=== PATIENT | male | born 1970 | race Caucasian/White ===

== ENCOUNTER → 2020-12-10 | Outpatient (CLI) | payer OTHER | LOC: M LABSMTC 13:51 | PROVIDERS: ATTEND Family Medicine | DX: Z20.822 Contact with and (suspected) exposure to COVID-19 (principal) ==

== ENCOUNTER → 2020-12-16 | Outpatient (CLI) | payer OTHER ==
[2020-12-16 13:36] LABS: HEMATOCRIT 37.8 % (42.0-52.0); HEMOGLOBIN 11.9 g/dl (13.5-17.5); MEAN CORPUSCULAR HEMOGLOBIN 26.4 pg (27.0-33.0); MEAN CORPUSCULAR HGB CONC 31.5 g/dl (32.0-36.5); MEAN CORPUSCULAR VOLUME 83.8 fl (80.0-96.0); PLATELET COUNT, AUTOMATED 234 10^3/uL (150-450); RED BLOOD COUNT 4.51 10^6/uL (4.30-6.10); WHITE BLOOD COUNT 4.8 10^3/uL (4.0-10.0)
[2020-12-16 15:36] LABS: ALBUMIN 4.1 GM/DL (3.2-5.2); ALT/SGPT 24 U/L (12-78); BILIRUBIN,TOTAL 0.4 MG/DL (0.2-1.0); BLOOD UREA NITROGEN 13 MG/DL (7-18); CALCIUM LEVEL 9.3 MG/DL (8.5-10.1); CARBON DIOXIDE LEVEL 28 MEQ/L (21-32); CHLORIDE LEVEL 104 MEQ/L (98-107); CREATININE FOR GFR 1.02 MG/DL (0.70-1.30); GLOMERULAR FILTRATION RATE > 60.0 (>56); GLUCOSE, FASTING 110 MG/DL (70-100); HEPATITIS B SURFACE ANTIGEN NEGATIVE (NEGATIVE); HEPATITIS C VIRUS ABY INDEX 0.7 INDEX (<0.8); HIV 1&2 SCREEN CENTAUR NEGATIVE (NEGATIVE); POTASSIUM SERUM 4.2 MEQ/L (3.5-5.1); SODIUM LEVEL 138 MEQ/L (136-145); TOTAL PROTEIN 7.4 GM/DL (6.4-8.2)
--- NOTE | 2020-12-16 16:19 | ECGEPIP ---
[facility] Test Date: 2020-12-16 Pat Name: GURVINDER SCOTT Department: Room: - Gender: Male Records Officer: RF : 1970 Requested By: Gurvinder Gutierrez Order Number: [id number] Reading MD: Oscar Bruce Measurements Intervals [place] Rate: 66 P: 55 [place]: 130 QRS: 13 QRSD: 94 T: 21 QT: 400 QTc: 419 Interpretive Statements Normal sinus rhythm Prominent precordial voltages No prior tracing for comparison. Clincal correlation advised Electronically Signed on 12-16-2020 16:19:47 EST by Oscar Bruce
== END ==
LOC: M LAB 12:18
PROVIDERS: ATTEND Family Medicine
DX: F11.20 Opioid dependence, uncomplicated (principal)

== ENCOUNTER → 2020-12-16 | Outpatient (CLI) | payer OTHER ==
[2020-12-16 13:28] LABS: APPEARANCE, URINE CLEAR (CLEAR); BACTERIA, URINE AUTO NEGATIVE (NEGATIVE); BILIRUBIN, URINE AUTO NEGATIVE (NEGATIVE); BLOOD, URINE BLOOD NEGATIVE (NEGATIVE); COLOR, URINE STRAW (YELLOW); GLUCOSE, URINE (UA) AUTO NEGATIVE (NEGATIVE); KETONE, URINE AUTO NEGATIVE (NEGATIVE); LEUKOCYTE ESTERASE, URINE AUTO NEGATIVE (NEGATIVE); NITRITE, URINE AUTO NEGATIVE (NEGATIVE); PROTEIN, URINE AUTO NEGATIVE (NEGATIVE); RBC, URINE AUTO 1 /HPF (0-3); SPECIFIC GRAVITY URINE AUTO 1.006 (1.002-1.035); SQUAMOUS EPITHELIAL CELL UR AU 0 /HPF (0-6); UROBILINOGEN, URINE AUTO 0.2 mg/dL (0.0-2.0); WBC, URINE AUTO 0 /HPF (0-3)
[2020-12-16 13:38] LABS: HEMATOCRIT 36.4 % (42.0-52.0); HEMOGLOBIN 11.7 g/dl (13.5-17.5); MEAN CORPUSCULAR HEMOGLOBIN 26.7 pg (27.0-33.0); MEAN CORPUSCULAR HGB CONC 32.1 g/dl (32.0-36.5); MEAN CORPUSCULAR VOLUME 82.9 fl (80.0-96.0); PLATELET COUNT, AUTOMATED 238 10^3/uL (150-450); RED BLOOD COUNT 4.39 10^6/uL (4.30-6.10); WHITE BLOOD COUNT 4.9 10^3/uL (4.0-10.0)
[2020-12-16 14:10] LABS: ALT/SGPT 25 U/L (12-78); BILIRUBIN,TOTAL 0.2 MG/DL (0.2-1.0); BLOOD UREA NITROGEN 12 MG/DL (7-18); CALCIUM LEVEL 9.5 MG/DL (8.5-10.1); CARBON DIOXIDE LEVEL 28 MEQ/L (21-32); CHLORIDE LEVEL 103 MEQ/L (98-107); CREATININE FOR GFR 1.01 MG/DL (0.70-1.30); GLOMERULAR FILTRATION RATE > 60.0 (>56); GLUCOSE, FASTING 109 MG/DL (70-100); POTASSIUM SERUM 4.1 MEQ/L (3.5-5.1); SODIUM LEVEL 138 MEQ/L (136-145); TOTAL PROTEIN 7.4 GM/DL (6.4-8.2)
[2020-12-16 14:58] LABS: CHLAMYDIA DNA AMPLIFICATION NEGATIVE (NEGATIVE); GC DNA AMPLIFICATION NEGATIVE (NEGATIVE)
[2020-12-16 15:19] LABS: HEPATITIS C VIRUS ABY INDEX 0.7 INDEX (<0.8)
== END ==
LOC: M LAB 12:15
PROVIDERS: ATTEND Internal Medicine Cardiovascular Disease
DX: Z02.2 Encounter for examination for admission to residential institution (principal)

== ENCOUNTER → 2020-12-30 | Outpatient (CLI) | payer MEDICAID, OTHER | LOC: M LAB 11:08 | PROVIDERS: ATTEND Physician Assistant Medical | DX: E29.1 Testicular hypofunction (principal) ==

== ENCOUNTER → 2021-12-07 | Outpatient (CLI) | payer MEDICAID ==
[2021-12-07 12:09] LABS: HEMATOCRIT 36.8 % (42.0-52.0); HEMOGLOBIN 11.8 g/dl (13.5-17.5); MEAN CORPUSCULAR HEMOGLOBIN 27.7 pg (27.0-33.0); MEAN CORPUSCULAR HGB CONC 32.1 g/dl (32.0-36.5); MEAN CORPUSCULAR VOLUME 86.4 fl (80.0-96.0); PLATELET COUNT, AUTOMATED 193 10^3/uL (150-450); RED BLOOD COUNT 4.26 10^6/uL (4.30-6.10); WHITE BLOOD COUNT 4.9 10^3/uL (4.0-10.0)
[2021-12-07 12:39] LABS: ALT/SGPT 26 U/L (12-78); BILIRUBIN,TOTAL 0.3 MG/DL (0.2-1.0); BLOOD UREA NITROGEN 15 MG/DL (7-18); CALCIUM LEVEL 9.3 MG/DL (8.5-10.1); CARBON DIOXIDE LEVEL 31 MEQ/L (21-32); CHLORIDE LEVEL 103 MEQ/L (98-107); CREATININE FOR GFR 0.98 MG/DL (0.70-1.30); GLOMERULAR FILTRATION RATE > 60.0 (>56); GLUCOSE, FASTING 94 MG/DL (70-100); POTASSIUM SERUM 4.2 MEQ/L (3.5-5.1); SODIUM LEVEL 138 MEQ/L (136-145); TOTAL PROTEIN 7.2 GM/DL (6.4-8.2)
[2021-12-07 13:00] LABS: HEPATITIS B SURFACE ANTIGEN NEGATIVE (NEGATIVE)
[2021-12-07 13:28] LABS: HEPATITIS C VIRUS ABY INDEX 0.6 INDEX (<0.8)
[2021-12-07 13:29] LABS: HIV 1&2 SCREEN CENTAUR NEGATIVE (NEGATIVE)
[2021-12-07 14:06] LABS: GC DNA AMPLIFICATION NEGATIVE (NEGATIVE)
== END ==
LOC: M EKG 11:25
PROVIDERS: ATTEND Family Medicine
DX: F11.21 Opioid dependence, in remission (principal)

== ENCOUNTER 2022-01-04 07:54 | Emergency (ER) | payer MEDICAID ==
[~2022-01-04] VITALS: Ht 170.2 cm; Wt 72.7 kg
[2022-01-04] MEDS ORDERED: NS 1,000 ML IV ONE ×2 (08:10→09:25)
[2022-01-04] MEDS ORDERED: ONDANSETRON 4MG/2ML VIAL IV ONE (08:10)
[2022-01-04 08:15] VITALS: BP 166/92
[2022-01-04] MEDS ORDERED: METHADONE 10 MG TAB (S0109) PO ONE (08:20)
[2022-01-04] MEDS ORDERED: ACETAMINOPHEN TAB 650MG DOSE (2X325MG) PO ONE (08:50)
[2022-01-04 08:55] LABS: BASO % 0.3 % (0.0-1.0); EOS # 0.1 10^3/uL (0.0-0.5); EOS % 1.1 % (0.0-3.0); HEMOGLOBIN 11.6 g/dl (13.5-17.5); LYMPH # 1.6 10^3/uL (1.5-5.0); LYMPH % 20.6 % (24.0-44.0); MEAN CORPUSCULAR HEMOGLOBIN 27.8 pg (27.0-33.0); MEAN CORPUSCULAR HGB CONC 32.2 g/dl (32.0-36.5); MEAN CORPUSCULAR VOLUME 86.1 fl (80.0-96.0); MONO # 0.5 10^3/uL (0.0-0.8); MONO % 5.8 % (2.0-8.0); NEUTROPHILS # 5.7 10^3/uL (1.5-8.5); NEUTROPHILS % 71.8 % (36.0-66.0); PLATELET COUNT, AUTOMATED 237 10^3/uL (150-450); RED BLOOD COUNT 4.18 10^6/uL (4.30-6.10); WHITE BLOOD COUNT 7.9 10^3/uL (4.0-10.0)
[2022-01-04 09:28] LABS: ACETAMINOPHEN LEVEL < 2.0 UG/ML (10.0-30.0); ALBUMIN 3.9 GM/DL (3.2-5.2); ALT/SGPT 27 U/L (12-78); BILIRUBIN,DIRECT < 0.1 MG/DL (0.0-0.2); BILIRUBIN,TOTAL 0.4 MG/DL (0.2-1.0); BLOOD UREA NITROGEN 15 MG/DL (7-18); CALCIUM LEVEL 9.3 MG/DL (8.5-10.1); CARBON DIOXIDE LEVEL 25 MEQ/L (21-32); CHLORIDE LEVEL 102 MEQ/L (98-107); CREATININE FOR GFR 0.86 MG/DL (0.70-1.30); ETHYL ALCOHOL (ETHANOL) < 0.003 % (0.000-0.010); GLOMERULAR FILTRATION RATE > 60.0 (>56); GLUCOSE, FASTING 105 MG/DL (70-100); LIPASE 38 U/L (73-393); POTASSIUM SERUM 4.9 MEQ/L (3.5-5.1); SALICYLATE LEVEL < 1.7 MG/DL (5.0-30.0); SODIUM LEVEL 136 MEQ/L (136-145); TOTAL PROTEIN 7.4 GM/DL (6.4-8.2)
[2022-01-04 09:48] LABS: AMPHETAMINES LEVEL URINE NEGATIVE (NEGATIVE); BARBITURATES URINE NEGATIVE (NEGATIVE); BENZODIAZEPINES URINE NEGATIVE (NEGATIVE); CANNABINOIDS URINE POSITIVE (NEGATIVE); COCAINE METABOLITE URINE NEGATIVE (NEGATIVE); METHADONE URINE POSITIVE (NEGATIVE); OPIATES URINE NEGATIVE (NEGATIVE); PHENCYCLIDINE URINE NEGATIVE (NEGATIVE)
[2022-01-04] MEDS ORDERED: ISOVUE-370 76% 100ML VIAL As Ordered ONE (09:52)
[2022-01-04 10:13] LABS: RSV AMPLIFICATION NEGATIVE (NEGATIVE)
[2022-01-05] MEDS ORDERED: SENN-80 PO (08:19)
[2022-01-05] MEDS ORDERED: OMEP40CA4 PO (08:19)
[2022-01-05] MEDS ORDERED: FLOV100A INH (08:19)
[2022-01-05] MEDS ORDERED: DOXE50CA PO (08:19)
[2022-01-05] MEDS ORDERED: medical marijuana (08:19)
[2022-01-05] MEDS ORDERED: FLOM0.4C39 PO (08:19)
[2022-01-05] MEDS ORDERED: LEXA5TAB13 PO (08:19)
[2022-01-05] MEDS ORDERED: METH10CO PO (08:19)
[2022-01-05] MEDS ORDERED: IBUP80TA PO (08:19)
[2022-01-05] MEDS ORDERED: PROAAER10 INH (08:31)
== END 2022-01-04 12:57 | disposition home or self-care (01) ==
LOC: M ED 07:54 → EDBD 07:54 → M ED 12:57
DX: F19.230 Other psychoactive substance dependence with withdrawal, uncomplicated (principal); R10.9 Unspecified abdominal pain; R11.10 Vomiting, unspecified; F11.10 Opioid abuse, uncomplicated; Z88.0 Allergy status to penicillin; Z88.6 Allergy status to analgesic agent
CPT/HCPCS: 74177; 80048; 80076; 80143; 80307; 82077; 82550; 83605; 83690; 84443; 85025; 87040; 87631; 93041; 94760; 96361; 96374; 99284; J2405; Q9967

== ENCOUNTER 2022-01-19 07:11 | Day surgery (SDC) | payer MEDICAID ==
[~2022-01-19] VITALS: Ht 167.6 cm; Wt 72.6 kg
[~2022-01-19 07:11] MED LIST: DOXE50CA PO; FLOM0.4C39 PO; FLOV100A INH; IBUP80TA PO; LEXA5TAB13 PO; LIDOCAINE 1% MDV 20ML VIAL SQ PRN; LR 1,000 ML IV ONE; METH10CO PO; OMEP40CA4 PO; PROAAER10 INH; SENN-80 PO; medical marijuana
[2022-01-19] MEDS ORDERED: LevoFLOXacin IV 500 MG in IV 1 EA IV ONE (07:35)
[2022-01-19] MEDS ORDERED: LIDOCAINE 2% 100MG/5ML SDV (FOR ANES.) As Ordered ONE (07:54)
[2022-01-19] MEDS ORDERED: ONDANSETRON 4MG/2ML VIAL As Ordered ONE (07:54)
[2022-01-19] MEDS ORDERED: dexameTHASONE 4 MG/ML 1ML VIAL (J1100 PER 1MG) As Ordered ONE (07:54)
[2022-01-19] MEDS ORDERED: fentaNYL 100 MCG/2 ML INJECTION As Ordered ONE (07:54)
[2022-01-19] MEDS ORDERED: MIDAZOLAM INJ 2MG/2ML VIAL (J2250 PER 1MG) As Ordered ONE (07:54)
[2022-01-19] MEDS ORDERED: KETOROLAC 60MG 2ML VIAL As Ordered ONE (07:54)
[2022-01-19] MEDS ORDERED: SUGAMMADEX SODIUM 500 MG/5 ML VIAL (BRIDION) As Ordered ONE (07:55)
[2022-01-19] MEDS ORDERED: ROCURONIUM BROMIDE 50 MG/5 ML VIAL As Ordered ONE ×2 (07:55→10:38)
[2022-01-19] MEDS ORDERED: propofoL 200 MG/20 ML VIAL As Ordered ONE (07:55)
[2022-01-19] MEDS ORDERED: BUPIVACAINE HCL 0.25% 10ML VIAL As Ordered ONE (09:44)
[2022-01-19] MEDS ORDERED: LIDOCAINE W/EPINEPHRINE 1% 20ML VIAL As Ordered ONE (09:44)
[2022-01-19] MEDS ORDERED: ACETAMINOPHEN 1000MG 100ML IV BTL (OFIRMEV) (J0131 PER 10MG) As Ordered ONE (10:14)
[2022-01-19] MEDS ORDERED: ONDANSETRON 4MG/2ML VIAL IV PRN (11:50)
[2022-01-19] MEDS ORDERED: fentaNYL 100 MCG/2 ML INJECTION IV PRN (11:50)
[2022-01-19] MEDS ORDERED: PERCOCET 5MG/325MG TAB PO PRN ×3 (11:50→12:50)
[2022-01-19] MEDS ORDERED: METOCLOPRAMIDE INJ 10MG/2ML VIAL (J2765 PER 1) IV PRN (11:50)
[2022-01-19] MEDS ORDERED: LR 1,000 ML IV SCH (11:50)
[2022-01-19] MEDS ORDERED: NS 1,000 ML IV SCH (11:55)
[2022-01-19 12:05] VITALS: BP 149/89
== END 2022-01-19 12:28 | disposition home or self-care (01) ==
LOC: M SDC 07:11
PROVIDERS: ATTEND Surgery
DX: K40.90 Unilateral inguinal hernia, without obstruction or gangrene, not specified as recurrent (principal); K21.9 Gastro-esophageal reflux disease without esophagitis; J45.909 Unspecified asthma, uncomplicated; Z79.891 Long term (current) use of opiate analgesic; Z79.899 Other long term (current) drug therapy; F41.9 Anxiety disorder, unspecified; F32.9 Major depressive disorder, single episode, unspecified; F12.10 Cannabis abuse, uncomplicated; F11.11 Opioid abuse, in remission; Z88.0 Allergy status to penicillin; Z88.8 Allergy status to other drugs, medicaments and biological substances
CPT/HCPCS: 49650; C1781; J0131; J1100; J1885; J1956; J2250; J2405; J3010; S2900

== ENCOUNTER 2022-04-15 08:25 | Emergency (ER) | payer MEDICAID ==
[~2022-04-15] VITALS: Ht 167.6 cm; Wt 81.8 kg
[~2022-04-15 08:25] MED LIST changes: -LIDOCAINE 1% MDV 20ML VIAL SQ PRN; -LR 1,000 ML IV ONE
[2022-04-15] MEDS ORDERED: NS 1,000 ML IV ONE (08:55)
[2022-04-15] MEDS ORDERED: ONDANSETRON 4MG/2ML VIAL IV ONE (08:55)
[2022-04-15 09:13] LABS: BASO % 0.4 % (0.0-1.0); EOS # 0.1 10^3/uL (0.0-0.5); EOS % 1.1 % (0.0-3.0); HEMOGLOBIN 11.9 g/dl (13.5-17.5); LYMPH # 1.4 10^3/uL (1.5-5.0); LYMPH % 17.4 % (24.0-44.0); MEAN CORPUSCULAR HEMOGLOBIN 28.3 pg (27.0-33.0); MEAN CORPUSCULAR HGB CONC 33.1 g/dl (32.0-36.5); MEAN CORPUSCULAR VOLUME 85.5 fl (80.0-96.0); MONO # 0.5 10^3/uL (0.0-0.8); MONO % 5.8 % (2.0-8.0); NEUTROPHILS # 6.1 10^3/uL (1.5-8.5); NEUTROPHILS % 74.9 % (36.0-66.0); PLATELET COUNT, AUTOMATED 258 10^3/uL (150-450); RED BLOOD COUNT 4.21 10^6/uL (4.30-6.10); WHITE BLOOD COUNT 8.2 10^3/uL (4.0-10.0)
[2022-04-15] MEDS ORDERED: KETOROLAC 30 MG/ML 1ML VIAL IV ONE ×2 (09:25→10:45)
[2022-04-15 09:39] LABS: ALBUMIN 4.1 GM/DL (3.2-5.2); BILIRUBIN,DIRECT 0.1 MG/DL (0.0-0.2); BILIRUBIN,TOTAL 0.3 MG/DL (0.2-1.0); TOTAL PROTEIN 7.3 GM/DL (6.4-8.2)
[2022-04-15 10:15] VITALS: BP 134/67
[2022-04-15] MEDS ORDERED: ONDA4TAB6 PO (11:15)
== END 2022-04-15 11:38 | disposition home or self-care (01) ==
LOC: M ED 08:25
DX: R10.9 Unspecified abdominal pain (principal); R11.0 Nausea; F17.200 Nicotine dependence, unspecified, uncomplicated; J45.909 Unspecified asthma, uncomplicated; F41.9 Anxiety disorder, unspecified; F32.A Depression, unspecified; Z88.0 Allergy status to penicillin; Z88.6 Allergy status to analgesic agent; Z79.51 Long term (current) use of inhaled steroids; Z79.899 Other long term (current) drug therapy
CPT/HCPCS: 80047; 80076; 83690; 85025; 96361; 96374; 96375; 99284; J1885; J2405

== ENCOUNTER → 2022-08-23 | Outpatient (CLI) | payer MEDICAID ==
[~2022-08-23] MED LIST changes: +MINO100C4 PO; +ONDA4TAB6 PO
== END ==
LOC: M LABSMTC 09:59
PROVIDERS: ATTEND Anesthesiology
DX: Z01.812 Encounter for preprocedural laboratory examination (principal); Z20.822 Contact with and (suspected) exposure to COVID-19

== ENCOUNTER 2022-08-27 09:09 | Day surgery (SDC) | payer OTHER ==
[~2022-08-27] VITALS: Ht 167.6 cm; Wt 71.7 kg
[~2022-08-27 09:09] MED LIST changes: +NS 1,000 ML IV ONE
[2022-08-27] MEDS ORDERED: fentaNYL 100 MCG/2 ML INJECTION As Ordered ONE (10:04)
[2022-08-27] MEDS ORDERED: propofoL 200 MG/20 ML VIAL As Ordered ONE ×2 (10:04→11:30)
[2022-08-27] MEDS ORDERED: LIDOCAINE 2% 100MG/5ML SDV (FOR ANES.) As Ordered ONE (10:04)
[2022-08-27 12:19] VITALS: BP 96/63
== END 2022-08-27 12:18 | disposition home or self-care (01) ==
LOC: M OPP 09:09
PROVIDERS: ATTEND Internal Medicine Gastroenterology
DX: Z12.11 Encounter for screening for malignant neoplasm of colon (principal); Z80.0 Family history of malignant neoplasm of digestive organs; K22.70 Barrett's esophagus without dysplasia; K44.9 Diaphragmatic hernia without obstruction or gangrene; Z79.1 Long term (current) use of non-steroidal anti-inflammatories (NSAID); Z79.2 Long term (current) use of antibiotics; Z79.51 Long term (current) use of inhaled steroids; Z79.84 Long term (current) use of oral hypoglycemic drugs; Z79.899 Other long term (current) drug therapy; Z88.0 Allergy status to penicillin; Z88.6 Allergy status to analgesic agent; J45.909 Unspecified asthma, uncomplicated; F41.9 Anxiety disorder, unspecified; F43.10 Post-traumatic stress disorder, unspecified
CPT/HCPCS: 43239; 45378; 88305; J3010

== ENCOUNTER 2022-11-20 12:27 | Emergency (ER) | payer MEDICAID, OTHER ==
[~2022-11-20] VITALS: Ht 167.6 cm; Wt 69.2 kg
[~2022-11-20 12:27] MED LIST changes: -NS 1,000 ML IV ONE
[2022-11-20] MEDS ORDERED: DOXY100C3 (12:57)
[2022-11-20] MEDS ORDERED: MUPI2OI (16:21)
[2022-11-20] MEDS ORDERED: DALBAVANCIN 1,500 MG in D5W 250 ML IV ONE (16:45)
[2022-11-20 17:14] LABS: BASO % 0.3 % (0.0-1.0); EOS % 0.7 % (0.0-3.0); HEMOGLOBIN 11.7 g/dl (13.5-17.5); LYMPH # 0.8 10^3/uL (1.5-5.0); LYMPH % 14.3 % (24.0-44.0); MEAN CORPUSCULAR HEMOGLOBIN 27.2 pg (27.0-33.0); MEAN CORPUSCULAR HGB CONC 33.4 g/dl (32.0-36.5); MEAN CORPUSCULAR VOLUME 81.4 fl (80.0-96.0); MONO # 0.6 10^3/uL (0.0-0.8); MONO % 9.9 % (2.0-8.0); NEUTROPHILS # 4.3 10^3/uL (1.5-8.5); NEUTROPHILS % 74.5 % (36.0-66.0); PLATELET COUNT, AUTOMATED 179 10^3/uL (150-450); WHITE BLOOD COUNT 5.7 10^3/uL (4.0-10.0)
[2022-11-20 17:26] LABS: ERYTHROCYTE SEDIMENTATION RATE 15 mm/hr (0-20)
[2022-11-20] MEDS ORDERED: METHADONE 10MG TAB PO ONE (17:30)
[2022-11-20 17:37] LABS: BILIRUBIN,DIRECT 0.2 MG/DL (<0.4)
[2022-11-20 17:40] LABS: ALBUMIN 4.2 G/DL (3.2-5.2); ALKALINE PHOSPHATASE 72 U/L (46-116); ALT/SGPT 35 U/L (7.0-40); AST/SGOT 59 U/L (<34); BILIRUBIN,TOTAL 0.4 MG/DL (0.3-1.2); BLOOD UREA NITROGEN 14 MG/DL (9-23); CALCIUM LEVEL 8.9 MG/DL (8.5-10.1); CARBON DIOXIDE LEVEL 24 MMOL/L (20-31); CHLORIDE LEVEL 94 MMOL/L (98-107); CREATININE FOR GFR 0.77 MG/DL (0.70-1.30); GLOMERULAR FILTRATION RATE > 60.0 (>56); GLUCOSE, FASTING 121 MG/DL (60-100); POTASSIUM SERUM 2.9 MMOL/L (3.5-5.1); SODIUM LEVEL 129 MMOL/L (136-145)
[2022-11-20] MEDS ORDERED: KCL 10MEQ/100ML SWI (KRUN) 10 MEQ in IV 1 EA IV ONE (17:50)
[2022-11-20] MEDS ORDERED: NS 1,000 ML IV ONE (17:50)
[2022-11-20] MEDS ORDERED: POTASSIUM CHLORIDE 10MEQ SR TABLET PO ONE (18:00)
[2022-11-20] MEDS ORDERED: KETOROLAC 30 MG/ML 1ML VIAL IV ONE (18:00)
[2022-11-20] MEDS ORDERED: MUPI2OI TOP (19:07)
[2022-11-20 19:18] VITALS: BP 136/85
== END 2022-11-20 19:26 | disposition home or self-care (01) ==
LOC: M ED 17:01
DX: J33.0 Polyp of nasal cavity (principal); J34.0 Abscess, furuncle and carbuncle of nose; E87.6 Hypokalemia; E87.1 Hypo-osmolality and hyponatremia; J45.909 Unspecified asthma, uncomplicated; F12.10 Cannabis abuse, uncomplicated; F41.9 Anxiety disorder, unspecified; K22.70 Barrett's esophagus without dysplasia; Z88.0 Allergy status to penicillin; Z88.6 Allergy status to analgesic agent; Z79.51 Long term (current) use of inhaled steroids; Z79.899 Other long term (current) drug therapy
CPT/HCPCS: 80048; 80076; 83605; 85025; 85652; 86140; 87040; 87070; 87077; 87186; 87205; 96365; 96375; 99283; J0875; J1885; S0109

== ENCOUNTER 2022-11-21 23:45 | Emergency (ER) | payer OTHER ==
[~2022-11-21] VITALS: Ht 167.6 cm; Wt 68.2 kg
[~2022-11-21 23:45] MED LIST changes: +DOXY100C3; +MUPI2OI; +MUPI2OI TOP
[2022-11-21 23:46] VITALS: BP 151/90
[2022-11-22 04:46] LABS: BLOOD UREA NITROGEN 11 MG/DL (9-23); CARBON DIOXIDE LEVEL 27 MMOL/L (20-31); CHLORIDE LEVEL 96 MMOL/L (98-107); CREATININE FOR GFR 0.79 MG/DL (0.70-1.30); GLOMERULAR FILTRATION RATE > 60.0 (>56); GLUCOSE, FASTING 91 MG/DL (60-100); POTASSIUM SERUM 3.5 MMOL/L (3.5-5.1); SODIUM LEVEL 132 MMOL/L (136-145)
== END 2022-11-22 07:55 | disposition home or self-care (01) ==
LOC: M ED 23:45
DX: J33.0 Polyp of nasal cavity (principal); J45.909 Unspecified asthma, uncomplicated; K22.70 Barrett's esophagus without dysplasia; F41.9 Anxiety disorder, unspecified; Z88.0 Allergy status to penicillin; Z88.6 Allergy status to analgesic agent; Z79.51 Long term (current) use of inhaled steroids; Z79.899 Other long term (current) drug therapy

== ENCOUNTER 2022-11-25 13:18 | Emergency (ER) | payer OTHER ==
[~2022-11-25] VITALS: Ht 167.6 cm; Wt 64.3 kg
[2022-11-25 15:02] VITALS: BP 157/94
[2022-11-25] MEDS ORDERED: METHADONE 10MG TAB PO ONE (16:10)
[2022-11-25] MEDS ORDERED: MUPI2OI TOP (16:14)
[2022-11-25] MEDS ORDERED: FLOM0.4C39 PO (16:14)
== END 2022-11-25 17:35 | disposition home or self-care (01) ==
LOC: M ED 15:15
DX: R33.9 Retention of urine, unspecified (principal); F11.23 Opioid dependence with withdrawal; J45.909 Unspecified asthma, uncomplicated; K21.9 Gastro-esophageal reflux disease without esophagitis; F32.A Depression, unspecified; Z88.0 Allergy status to penicillin; Z88.6 Allergy status to analgesic agent; Z79.51 Long term (current) use of inhaled steroids; Z79.899 Other long term (current) drug therapy
CPT/HCPCS: 99284; S0109

== ENCOUNTER 2022-12-16 13:31 | Inpatient (IN) | payer MEDICAID, OTHER ==
[~2022-12-16] VITALS: Ht 167.6 cm; Wt 62.6 kg
[2022-12-16] MEDS ORDERED: LORazepam 2 MG TAB PO ONE (14:05)
[2022-12-16] MEDS ORDERED: OLANZapine ORAL DISINTEGRATING TAB 5MG PO ONE (14:20)
[2022-12-16 14:50] LABS: HEMATOCRIT 45.8 % (42.0-52.0); HEMOGLOBIN 15.1 g/dl (13.5-17.5); MEAN CORPUSCULAR HEMOGLOBIN 27.4 pg (27.0-33.0); MEAN CORPUSCULAR VOLUME 83.1 fl (80.0-96.0); PLATELET COUNT, AUTOMATED 327 10^3/uL (150-450); RED BLOOD COUNT 5.51 10^6/uL (4.30-6.10); WHITE BLOOD COUNT 5.5 10^3/uL (4.0-10.0)
[2022-12-16 15:13] LABS: BARBITURATES URINE NEGATIVE (NEGATIVE); BENZODIAZEPINES URINE NEGATIVE (NEGATIVE); COCAINE METABOLITE URINE NEGATIVE (NEGATIVE); OPIATES URINE NEGATIVE (NEGATIVE); PHENCYCLIDINE URINE NEGATIVE (NEGATIVE)
[2022-12-16 15:15] LABS: ETHYL ALCOHOL (ETHANOL) 0.003 % (0.000-0.010)
[2022-12-16 15:17] LABS: ACETAMINOPHEN LEVEL < 2.0 UG/ML (10.0-20.0); ALKALINE PHOSPHATASE 89 U/L (46-116); ALT/SGPT 17 U/L (7.0-40); AMPHETAMINES LEVEL URINE POSITIVE (NEGATIVE); AST/SGOT 16 U/L (<34); BILIRUBIN,DIRECT 0.1 MG/DL (<0.4); BILIRUBIN,TOTAL 0.4 MG/DL (0.3-1.2); BLOOD UREA NITROGEN 28 MG/DL (9-23); CALCIUM LEVEL 9.5 MG/DL (8.5-10.1); CANNABINOIDS URINE POSITIVE (NEGATIVE); CARBON DIOXIDE LEVEL 27 MMOL/L (20-31); CHLORIDE LEVEL 99 MMOL/L (98-107); CREATININE FOR GFR 0.78 MG/DL (0.70-1.30); GLOMERULAR FILTRATION RATE > 60.0 (>56); GLUCOSE, FASTING 101 MG/DL (60-100); METHADONE URINE POSITIVE (NEGATIVE); POTASSIUM SERUM 4.6 MMOL/L (3.5-5.1); SALICYLATE LEVEL < 3.0 MG/DL (<30); SODIUM LEVEL 133 MMOL/L (136-145); TOTAL PROTEIN 7.3 G/DL (5.7-8.2)
[2022-12-16 15:19] LABS: THYROID STIMULATING HORMONE 0.142 uIU/ML (0.55-4.78)
[2022-12-16] MEDS ORDERED: METHADONE 10MG TAB PO ONE (17:55)
[2022-12-16] MEDS ORDERED: PILL CUTTER 1 EACH XX PRN (19:00)
[2022-12-17] MEDS ORDERED: CIPR-249 PO (06:29)
[2022-12-17] MEDS ORDERED: FLOM0.4C39 PO (06:29)
[2022-12-17] MEDS ORDERED: IBUP1TAB7 PO (06:29)
[2022-12-17] MEDS ORDERED: SENN8.6T28 PO (06:29)
[2022-12-17] MEDS ORDERED: PRED10TA2 PO (06:29)
[2022-12-17] MEDS ORDERED: ALBU8.5H INH (06:29)
[2022-12-17] MEDS ORDERED: HYDR-3363 PO (06:29)
[2022-12-17] MEDS ORDERED: MUPI2OI EXT (06:29)
[2022-12-17] MEDS ORDERED: HOME MED LIST COMPLETE! XX SCH (06:30)
[2022-12-17] MEDS ORDERED: METHADONE 10MG TAB PO SCH (09:00)
[2022-12-17] MEDS: NICOTINE 14 MG/24 HR TRANSDERMAL TD SCH (09:00)
[2022-12-17] MEDS ORDERED: LORazepam 1 MG TAB PO PRN (12:35)
[2022-12-17] MEDS ORDERED: ALBUTEROL 90 MCG/ACT 8GM HFA INHALER INH PRN (12:35)
[2022-12-17] MEDS ORDERED: MAALOX 30 ML SUSP *UDC PO PRN (12:35)
[2022-12-17] MEDS: OMEPRAZOLE 20MG CAP PO SCH ×2 (15:10→20:46)
[2022-12-17] MEDS: TAMSULOSIN 0.4 MG CAP PO SCH (15:10)
[2022-12-17] MEDS: predniSONE 10 MG TAB PO SCH (15:11)
[2022-12-17 15:23] VITALS: BP 137/93
[2022-12-17] MEDS: MUPIROCIN 2% OINT 22 GM TUBE TOP SCH ×2 (16:00→20:47)
[2022-12-17 17:29] VITALS: BP 120/65
[2022-12-17] MEDS: CIPROFLOXACIN 500MG TABLET PO SCH (18:16)
[2022-12-17] MEDS: SENNA 8.6 MG TAB (SENOKOT) PO SCH (20:46)
[2022-12-18] MEDS: CIPROFLOXACIN 500MG TABLET PO SCH (05:49)
[2022-12-18 06:34] VITALS: BP 120/72
[2022-12-18] MEDS: NICOTINE 14 MG/24 HR TRANSDERMAL TD SCH (09:00)
[2022-12-18] MEDS: METHADONE 10MG TAB PO SCH (09:12)
[2022-12-18] MEDS: MUPIROCIN 2% OINT 22 GM TUBE TOP SCH ×3 (09:12→20:23)
[2022-12-18] MEDS: TAMSULOSIN 0.4 MG CAP PO SCH (09:13)
[2022-12-18] MEDS: OMEPRAZOLE 20MG CAP PO SCH ×2 (09:13→20:23)
[2022-12-18] MEDS: predniSONE 10 MG TAB PO SCH (09:13)
[2022-12-18] MEDS: SENNA 8.6 MG TAB (SENOKOT) PO SCH ×2 (09:13→20:23)
[2022-12-18 10:55] LABS: GC DNA AMPLIFICATION NEGATIVE (NEGATIVE)
[2022-12-18] MEDS: ESCITALOPRAM OXALATE 5MG TABLET (LEXAPRO) PO SCH (17:19)
[2022-12-18 17:26] VITALS: BP 123/88
[2022-12-18] MEDS: DOXEPIN 25 MG CAP PO SCH (20:23)
[2022-12-19 06:42] VITALS: BP 129/76
[2022-12-19] MEDS: NICOTINE 14 MG/24 HR TRANSDERMAL TD SCH (08:27)
[2022-12-19] MEDS: ESCITALOPRAM OXALATE 5MG TABLET (LEXAPRO) PO SCH (08:29)
[2022-12-19] MEDS: TAMSULOSIN 0.4 MG CAP PO SCH (08:29)
[2022-12-19] MEDS: predniSONE 10 MG TAB PO SCH (08:29)
[2022-12-19] MEDS: OMEPRAZOLE 20MG CAP PO SCH ×2 (08:30→20:25)
[2022-12-19] MEDS: SENNA 8.6 MG TAB (SENOKOT) PO SCH ×2 (08:30→20:24)
[2022-12-19] MEDS: METHADONE 10MG TAB PO SCH (08:31)
[2022-12-19] MEDS: MUPIROCIN 2% OINT 22 GM TUBE TOP SCH ×3 (08:31→20:24)
[2022-12-19] MEDS: MOM 30ML SUSPENSION UDC PO PRN (17:12)
[2022-12-19] MEDS: DOXEPIN 25 MG CAP PO SCH (20:24)
[2022-12-19 20:33] VITALS: BP 150/82
[2022-12-20 06:02] VITALS: BP 127/78
[2022-12-20] MEDS: SENNA 8.6 MG TAB (SENOKOT) PO SCH ×2 (08:53→20:25)
[2022-12-20] MEDS: ESCITALOPRAM OXALATE 5MG TABLET (LEXAPRO) PO SCH (08:53)
[2022-12-20] MEDS: METHADONE 10MG TAB PO SCH (08:53)
[2022-12-20] MEDS: predniSONE 10 MG TAB PO SCH (08:53)
[2022-12-20] MEDS: MUPIROCIN 2% OINT 22 GM TUBE TOP SCH ×3 (08:53→20:25)
[2022-12-20] MEDS: TAMSULOSIN 0.4 MG CAP PO SCH (08:54)
[2022-12-20] MEDS: OMEPRAZOLE 20MG CAP PO SCH ×2 (08:54→20:25)
[2022-12-20] MEDS: MOM 30ML SUSPENSION UDC PO PRN (15:14)
[2022-12-20 17:32] VITALS: BP 117/69
[2022-12-20] MEDS: DOXEPIN 25 MG CAP PO SCH (20:25)
[2022-12-21 06:38] VITALS: BP 118/75
[2022-12-21] MEDS: ESCITALOPRAM OXALATE 5MG TABLET (LEXAPRO) PO SCH (08:37)
[2022-12-21] MEDS: METHADONE 10MG TAB PO SCH (08:37)
[2022-12-21] MEDS: MUPIROCIN 2% OINT 22 GM TUBE TOP SCH (08:38)
[2022-12-21] MEDS: predniSONE 10 MG TAB PO SCH (08:38)
[2022-12-21] MEDS: SENNA 8.6 MG TAB (SENOKOT) PO SCH (08:38)
[2022-12-21] MEDS: OMEPRAZOLE 20MG CAP PO SCH (08:38)
[2022-12-21] MEDS: TAMSULOSIN 0.4 MG CAP PO SCH (08:38)
[2022-12-21] MEDS ORDERED: MIRALAX *UNIT DOSE* 17GM PACKET PO ONE (08:55)
[2022-12-21] MEDS ORDERED: DOXE25CA PO (09:34)
[2022-12-23 00:08] LABS: HSV-1 DNA Negative (Negative); HSV-2 DNA Negative (Negative)
== END 2022-12-21 11:11 | disposition home or self-care (01) | DRG 775 ==
LOC: M ED 13:31 → M ED INP 12-17 12:34 → M PSY 12-17 15:17
PROVIDERS: ADMIT Psychiatry & Neurology Psychiatry; ATTEND Psychiatry & Neurology Psychiatry
DX: F15.14 Other stimulant abuse with stimulant-induced mood disorder (principal); R45.851 Suicidal ideations; F10.10 Alcohol abuse, uncomplicated; F41.1 Generalized anxiety disorder; F12.90 Cannabis use, unspecified, uncomplicated; Z88.0 Allergy status to penicillin; Z88.6 Allergy status to analgesic agent; Z79.899 Other long term (current) drug therapy; J45.909 Unspecified asthma, uncomplicated; K21.9 Gastro-esophageal reflux disease without esophagitis; K44.9 Diaphragmatic hernia without obstruction or gangrene; K22.70 Barrett's esophagus without dysplasia; R33.9 Retention of urine, unspecified; L57.0 Actinic keratosis

== ENCOUNTER 2024-02-02 03:25 | Emergency (ER) | payer MEDICAID, OTHER ==
[~2024-02-02] VITALS: Ht 167.6 cm; Wt 72.7 kg
[~2024-02-02 03:25] MED LIST changes: +ALBU8.5H INH; +CIPR-249 PO; +DOXE25CA PO; +HYDR-3363 PO; +IBUP1TAB7 PO; +MUPI2OI EXT; +PRED10TA2 PO; +SENN-186 PO; -SENN-80 PO; +SENN8.6T28 PO
[2024-02-02] MEDS: NS 1,000 ML IV ONE ×2 (05:57→08:20)
[2024-02-02 06:17] LABS: BASO % 0.3 % (0.0-1.0); EOS % 0.4 % (0.0-3.0); HEMATOCRIT 37.3 % (42.0-52.0); HEMOGLOBIN 12.2 g/dl (13.5-17.5); LYMPH # 0.8 10^3/uL (1.5-5.0); LYMPH % 11.2 % (24.0-44.0); MEAN CORPUSCULAR HEMOGLOBIN 25.1 pg (27.0-33.0); MEAN CORPUSCULAR HGB CONC 32.7 g/dl (32.0-36.5); MEAN CORPUSCULAR VOLUME 76.6 fl (80.0-96.0); MONO # 0.5 10^3/uL (0.0-0.8); MONO % 6.3 % (2.0-8.0); NEUTROPHILS # 6.1 10^3/uL (1.5-8.5); NEUTROPHILS % 81.7 % (36.0-66.0); PLATELET COUNT, AUTOMATED 297 10^3/uL (150-450); RED BLOOD COUNT 4.87 10^6/uL (4.30-6.10); WHITE BLOOD COUNT 7.4 10^3/uL (4.0-10.0)
[2024-02-02 06:55] LABS: ALBUMIN 4.1 G/DL (3.2-5.2); ALKALINE PHOSPHATASE 115 U/L (46-116); ALT/SGPT 14 U/L (7.0-40); AST/SGOT 22 U/L (<34); BILIRUBIN,DIRECT 0.2 MG/DL (<0.4); BILIRUBIN,TOTAL 0.6 MG/DL (0.3-1.2); BLOOD UREA NITROGEN 10 MG/DL (9-23); CALCIUM LEVEL 9.7 MG/DL (8.5-10.1); CARBON DIOXIDE LEVEL 23 MMOL/L (20-31); CHLORIDE LEVEL 99 MMOL/L (98-107); CPK CREATINE PHOSPHOKINASE 370 U/L (46-171); CREATININE FOR GFR 0.64 MG/DL (0.70-1.30); ETHYL ALCOHOL (ETHANOL) < 0.003 % (0.000-0.010); GLOMERULAR FILTRATION RATE > 60.0 (>56); GLUCOSE, FASTING 129 MG/DL (60-100); POTASSIUM SERUM 3.7 MMOL/L (3.5-5.1); SALICYLATE LEVEL < 3.0 MG/DL (<30); SODIUM LEVEL 132 MMOL/L (136-145); TOTAL PROTEIN 7.6 G/DL (5.7-8.2)
[2024-02-02] MEDS: OLANZapine ORAL DISINTEGRATING TAB 5MG PO ONE (07:16)
[2024-02-02 07:42] LABS: BARBITURATES URINE NEGATIVE (NEGATIVE); BENZODIAZEPINES URINE NEGATIVE (NEGATIVE); COCAINE METABOLITE URINE NEGATIVE (NEGATIVE); OPIATES URINE NEGATIVE (NEGATIVE); PHENCYCLIDINE URINE NEGATIVE (NEGATIVE)
[2024-02-02 07:43] LABS: AMPHETAMINES LEVEL URINE POSITIVE (NEGATIVE); CANNABINOIDS URINE POSITIVE (NEGATIVE); METHADONE URINE POSITIVE (NEGATIVE)
[2024-02-02] MEDS: METOCLOPRAMIDE INJ 10MG/2ML VIAL IV ONE (08:19)
[2024-02-02] MEDS: LORazepam 2 MG/ML 1ML VIAL IV STA (08:20)
[2024-02-02] MEDS ORDERED: MED REC IN PROGRESS XX SCH (09:10)
[2024-02-02] MEDS ORDERED: HOME MED LIST COMPLETE! XX SCH (13:05)
[2024-02-02 14:30] VITALS: BP 117/83
[2024-02-02 14:31] VITALS: TEMP 99.2; O2SAT 98
[2024-02-02] MEDS: METHADONE 10MG TAB PO ONE (14:32)
== END 2024-02-02 14:48 | disposition home or self-care (01) ==
LOC: M ED 03:25 → EDBD 03:25 → M ED 14:48
DX: F19.10 Other psychoactive substance abuse, uncomplicated (principal); I49.1 Atrial premature depolarization; I45.81 Long QT syndrome; J45.909 Unspecified asthma, uncomplicated; F41.9 Anxiety disorder, unspecified; K21.9 Gastro-esophageal reflux disease without esophagitis; Z88.0 Allergy status to penicillin; Z88.6 Allergy status to analgesic agent; Z79.52 Long term (current) use of systemic steroids; Z79.83 Long term (current) use of bisphosphonates; Z79.899 Other long term (current) drug therapy
CPT/HCPCS: 36415; 70450; 80048; 80076; 80143; 80307; 82077; 82550; 84443; 85025; 87635; 93005; 93041; 94760; 96361; 96374; 96375; 99285; J2060; J2765; S0109

== ENCOUNTER → 2024-02-03 | Outpatient (CLI) | payer OTHER ==
[2024-02-03 09:51] LABS: HEMATOCRIT 36.9 % (42.0-52.0); HEMOGLOBIN 11.8 g/dl (13.5-17.5); MEAN CORPUSCULAR HEMOGLOBIN 24.8 pg (27.0-33.0); MEAN CORPUSCULAR VOLUME 77.5 fl (80.0-96.0); PLATELET COUNT, AUTOMATED 284 10^3/uL (150-450); RED BLOOD COUNT 4.76 10^6/uL (4.30-6.10); WHITE BLOOD COUNT 6.2 10^3/uL (4.0-10.0)
[2024-02-03 10:52] LABS: HIV 1&2 SCREEN NEGATIVE (NEGATIVE)
[2024-02-03 11:09] LABS: ALBUMIN 4.2 G/DL (3.2-5.2); ALKALINE PHOSPHATASE 111 U/L (46-116); ALT/SGPT 14 U/L (7.0-40); AST/SGOT 21 U/L (<34); BILIRUBIN,TOTAL 0.4 MG/DL (0.3-1.2); BLOOD UREA NITROGEN 23 MG/DL (9-23); CALCIUM LEVEL 9.8 MG/DL (8.5-10.1); CARBON DIOXIDE LEVEL 28 MMOL/L (20-31); CHLORIDE LEVEL 98 MMOL/L (98-107); CREATININE FOR GFR 1.41 MG/DL (0.70-1.30); GLUCOSE, FASTING 109 MG/DL (60-100); POTASSIUM SERUM 3.9 MMOL/L (3.5-5.1); SODIUM LEVEL 133 MMOL/L (136-145); TOTAL PROTEIN 7.5 G/DL (5.7-8.2)
[2024-02-03 11:18] LABS: HEPATITIS C VIRUS ABY INDEX 1.89 INDEX (<0.8)
[2024-02-03 12:54] LABS: GC DNA AMPLIFICATION NEGATIVE (NEGATIVE)
== END ==
LOC: M LAB 08:38
PROVIDERS: ATTEND Family Medicine
DX: F11.20 Opioid dependence, uncomplicated (principal)

== ENCOUNTER → 2024-10-09 | Outpatient (REF) | payer OTHER ==
[~2024-10-09] MED LIST changes: +ONDA-282 PO; -ONDA4TAB6 PO
[2024-10-09 14:10] LABS: Trichomonas vaginalis (AMP) NOT DETECTED (NEGATIVE)
[2024-10-09 14:26] LABS: ALBUMIN 4.2 G/DL (3.2-5.2); ALKALINE PHOSPHATASE 81 U/L (40-129); ALT/SGPT 19 U/L (7.0-40); AST/SGOT 19 U/L (<34); BILIRUBIN,TOTAL 0.4 MG/DL (0.3-1.2); BLOOD UREA NITROGEN 15 MG/DL (9-23); CALCIUM LEVEL 9.6 MG/DL (8.5-10.1); CARBON DIOXIDE LEVEL 29 MMOL/L (20-31); CHLORIDE LEVEL 105 MMOL/L (98-107); CHOLESTEROL LEVEL 201 MG/DL (<200); CREATININE FOR GFR 0.72 MG/DL (0.70-1.30); GLOMERULAR FILTRATION RATE > 60.0 (>56); GLUCOSE, FASTING 92 MG/DL (60-100); HDL CHOLESTEROL 66.8 MG/DL (>40); LDL CHOLESTEROL 116.8 MG/DL (<100); NON-HDL-C 134.2 MG/DL; SODIUM LEVEL 139 MMOL/L (136-145); TOTAL PROTEIN 7.6 G/DL (5.7-8.2); TRIGLYCERIDES LEVEL 87 MG/DL (<150)
[2024-10-09 14:27] LABS: THYROID STIMULATING HORMONE 1.411 uIU/ML (0.55-4.78)
[2024-10-09 14:34] LABS: GC DNA AMPLIFICATION NEGATIVE (NEGATIVE)
[2024-10-09 14:43] LABS: HEMOGLOBIN A1c 5.4 % (4.0-6.0)
[2024-10-11 13:57] LABS: PSA FREE 0.2 ng/mL; PSA TOTAL 0.9 ng/mL (< OR = 4.0)
== END ==
LOC: M LAB REF 12:09
PROVIDERS: ATTEND Physician Assistant
DX: Z11.9 Encounter for screening for infectious and parasitic diseases, unspecified (principal); F11.21 Opioid dependence, in remission; E55.9 Vitamin D deficiency, unspecified; K21.9 Gastro-esophageal reflux disease without esophagitis; Z13.220 Encounter for screening for lipoid disorders; Z12.5 Encounter for screening for malignant neoplasm of prostate

== ENCOUNTER 2024-11-16 09:07 | Inpatient (IN) | payer OTHER ==
[~2024-11-16] VITALS: Ht 167.6 cm; Wt 67.5 kg
[2024-11-16] MEDS ORDERED: OMEP40CA5 (09:24)
[2024-11-16] MEDS ORDERED: IBUP-1022 PO (09:24)
[2024-11-16 11:39] LABS: BASO % 0.3 % (0.0-1.0); EOS # 0.2 10^3/uL (0.0-0.5); EOS % 1.9 % (0.0-3.0); HEMATOCRIT 35.1 % (42.0-52.0); HEMOGLOBIN 11.5 g/dl (13.5-17.5); LYMPH # 1.6 10^3/uL (1.5-5.0); LYMPH % 14.1 % (24.0-44.0); MEAN CORPUSCULAR HEMOGLOBIN 26.6 pg (27.0-33.0); MEAN CORPUSCULAR HGB CONC 32.8 g/dl (32.0-36.5); MEAN CORPUSCULAR VOLUME 81.1 fl (80.0-96.0); MONO % 8.5 % (2.0-8.0); NEUTROPHILS # 8.5 10^3/uL (1.5-8.5); NEUTROPHILS % 74.9 % (36.0-66.0); PLATELET COUNT, AUTOMATED 285 10^3/uL (150-450); RED BLOOD COUNT 4.33 10^6/uL (4.30-6.10); WHITE BLOOD COUNT 11.3 10^3/uL (4.0-10.0)
[2024-11-16] MEDS: ACETAMINOPHEN *IV* 1,000 MG in IV 1 EA IV ONE (11:43)
[2024-11-16 12:11] LABS: BLOOD UREA NITROGEN 13 MG/DL (9-23); C REACTIVE PROTEIN QUANTITATIV 9.21 MG/DL (<1.0); CARBON DIOXIDE LEVEL 26 MMOL/L (20-31); CHLORIDE LEVEL 106 MMOL/L (98-107); CREATININE FOR GFR 0.56 MG/DL (0.70-1.30); GLOMERULAR FILTRATION RATE > 60.0 (>56); GLUCOSE, FASTING 90 MG/DL (60-100); POTASSIUM SERUM 4.2 MMOL/L (3.5-5.1); SODIUM LEVEL 140 MMOL/L (136-145)
[2024-11-16 12:12] LABS: ERYTHROCYTE SEDIMENTATION RATE 51 mm/hr (0-20)
[2024-11-16] MEDS ORDERED: ISOVUE-370 76% 100ML VIAL As Ordered ONE (12:24)
[2024-11-16] MEDS: KETOROLAC 30 MG/ML 1ML VIAL IV ONE (14:29)
[2024-11-16] MEDS ORDERED: HOME MED LIST COMPLETE! XX SCH (15:10)
[2024-11-16] MEDS ORDERED: SENNA 8.6 MG TAB (SENOKOT) PO PRN (15:55)
[2024-11-16] MEDS ORDERED: MIRALAX *UNIT DOSE* 17GM PACKET PO PRN (15:55)
[2024-11-16] MEDS ORDERED: IPRATROPIUM 0.5MG/ALBUTEROL 2.5MG INH SOL UD 3ML (DUONEB) NEB PRN (15:55)
[2024-11-16] MEDS: MORPHINE 4 MG/ML 1ML VIAL IV PRN (16:24)
[2024-11-16 17:04] LABS: AMPHETAMINES LEVEL URINE NEGATIVE (NEGATIVE); BARBITURATES URINE NEGATIVE (NEGATIVE); BENZODIAZEPINES URINE NEGATIVE (NEGATIVE); CANNABINOIDS URINE NEGATIVE (NEGATIVE); COCAINE METABOLITE URINE NEGATIVE (NEGATIVE); METHADONE URINE NEGATIVE (NEGATIVE); PHENCYCLIDINE URINE NEGATIVE (NEGATIVE)
[2024-11-16 17:05] LABS: OPIATES URINE NEGATIVE (NEGATIVE)
[2024-11-16] MEDS ORDERED: PIPERACILLIN/TAZOBACTAM SOD 4.5 GM in DEXTROSE 5% (D5W) ADV/MINI-BAG 50 ML IV SCH (17:55)
[2024-11-16] MEDS ORDERED: NICOTINE 14 MG/24 HR TRANSDERMAL TD PRN (18:15)
[2024-11-16] MEDS ORDERED: NICOTINE POLACRILEX 2 MG GUM PO PRN (18:15)
[2024-11-16] MEDS: oxyCODONE 5MG TAB PO PRN (20:13)
[2024-11-16 21:11] LABS: HIV 1&2 SCREEN NEGATIVE (NEGATIVE)
[2024-11-16 21:19] LABS: HEP C VIRUS AB INDEX SOURCE PT 0.7 INDEX (0.0-0.8)
[2024-11-16] MEDS ORDERED: PROHANCE 279.3MG/ML 15ML VIAL As Ordered ONE (21:46)
[2024-11-16 22:25] VITALS: BP 135/83; TEMP 98.8; O2SAT 95
[2024-11-16] MEDS: MEROPENEM INJ 1 GM in IV 1 EA IV SCH (23:09)
[2024-11-16 23:32] VITALS: BP 130/75; TEMP 99; O2SAT 96
[2024-11-17] MEDS ORDERED: VANCOMYCIN/WATER FOR INJ 1,000 MG in IV 1 EA IV SCH ×2 (02:00→10:00)
[2024-11-17] MEDS ORDERED: VANCOMYCIN 1,250 MG/250 ML IV BAG *LOAD IV ONE ×2 (02:00)
[2024-11-17] MEDS: KETOROLAC 30 MG/ML 1ML VIAL IV ONE (02:11)
[2024-11-17 03:28] VITALS: BP 115/70; TEMP 98.6; O2SAT 98
[2024-11-17] MEDS: ACETAMINOPHEN 325 MG TAB PO SCH (06:00)
[2024-11-17 06:25] LABS: HEMATOCRIT 36.5 % (42.0-52.0); HEMOGLOBIN 11.7 g/dl (13.5-17.5); MEAN CORPUSCULAR HEMOGLOBIN 26.3 pg (27.0-33.0); MEAN CORPUSCULAR HGB CONC 32.1 g/dl (32.0-36.5); PLATELET COUNT, AUTOMATED 272 10^3/uL (150-450); RED BLOOD COUNT 4.45 10^6/uL (4.30-6.10); WHITE BLOOD COUNT 12.6 10^3/uL (4.0-10.0)
[2024-11-17 06:42] LABS: BLOOD UREA NITROGEN 12 MG/DL (9-23); CALCIUM LEVEL 8.7 MG/DL (8.5-10.1); CARBON DIOXIDE LEVEL 30 MMOL/L (20-31); CHLORIDE LEVEL 103 MMOL/L (98-107); CREATININE FOR GFR 0.66 MG/DL (0.70-1.30); GLOMERULAR FILTRATION RATE > 60.0 (>56); GLUCOSE, FASTING 100 MG/DL (60-100); SODIUM LEVEL 139 MMOL/L (136-145)
[2024-11-17 06:43] LABS: C REACTIVE PROTEIN QUANTITATIV 15.35 MG/DL (<1.0)
[2024-11-17] MEDS: OMEPRAZOLE 20MG CAP PO SCH (08:22)
[2024-11-17] MEDS: UNRESOLVED CLARIFICATION ENTRY XX SCH (08:25)
[2024-11-17] MEDS ORDERED: MORPHINE 4 MG/ML 1ML VIAL IV PRN (08:40)
[2024-11-17] MEDS: LACTOBACILLUS ACIDOPHILUS CAP (BACID) PO SCH (09:19)
[2024-11-17] MEDS: KETOROLAC 30 MG/ML 1ML VIAL IV SCH (09:20)
[2024-11-17 10:04] VITALS: BP 124/71; TEMP 98.8; O2SAT 94
[2024-11-17] MEDS: MORPHINE 2 MG/ML 1ML VIAL IV PRN (12:40)
[2024-11-17] MEDS ORDERED: HOME MED LIST COMPLETE! XX SCH (13:20)
[2024-11-17 14:15] VITALS: BP 117/84; TEMP 97.9; O2SAT 98
[2024-11-17] MEDS: oxyCODONE 5MG TAB PO PRN (14:20)
[2024-11-17] MEDS: VANCOMYCIN HCL 1,500 MG, VIAL MATE ADAPTER 1 EACH in NS 500 ML IV ONE (15:54)
[2024-11-17 18:00] VITALS: BP 113/75; TEMP 98.1; O2SAT 97
[2024-11-17] MEDS: MEROPENEM INJ 1 GM in IV 1 EA IV SCH (18:38)
[2024-11-17 20:00] VITALS: BP_SYST 120; BP_SYST 128; BP_DIAS 77; BP_DIAS 89; TEMP 97.7; O2SAT 93; O2SAT 97
[2024-11-17] MEDS: MORPHINE 4 MG/ML 1ML VIAL IV PRN (20:54)
[2024-11-17] MEDS ORDERED: propofoL 200 MG/20 ML VIAL As Ordered ONE (21:47)
[2024-11-17] MEDS ORDERED: ONDANSETRON 4MG 2ML VIAL As Ordered ONE (21:47)
[2024-11-17] MEDS ORDERED: MIDAZOLAM INJ 2MG/2ML VIAL As Ordered ONE (21:47)
[2024-11-17] MEDS ORDERED: fentaNYL 100 MCG/2 ML INJECTION As Ordered ONE (21:47)
[2024-11-17] MEDS ORDERED: LIDOCAINE 2% 100MG/5ML SDV (FOR ANES.) As Ordered ONE (21:47)
[2024-11-17] MEDS ORDERED: ROCURONIUM BROMIDE 50MG/5ML VIAL As Ordered ONE (21:51)
[2024-11-17] MEDS ORDERED: dexmedeTOMIDine (4MCG/ML)200MCG/50ML BTL (PRECEDEX) As Ordered ONE (21:53)
[2024-11-17] MEDS ORDERED: ACETAMINOPHEN 1000MG/100ML IV BAG As Ordered ONE (23:02)
[2024-11-17] MEDS ORDERED: ePHEDrine SULFATE 25 MG/5 ML(5MG/ML) SYRINGE As Ordered ONE (23:11)
[2024-11-17] MEDS ORDERED: PHENYLephrine 500MCG 5ML (100MCG/ML) SYRINGE As Ordered ONE (23:11)
[2024-11-17] MEDS ORDERED: KETOROLAC 60MG 2ML VIAL As Ordered ONE (23:12)
[2024-11-17] MEDS ORDERED: SUGAMMADEX SODIUM 500 MG/5 ML VIAL (BRIDION) As Ordered ONE (23:12)
[2024-11-17] MEDS: TRANEXAMIC ACID 100 MG/ML 10ML VIAL As Ordered ONE (23:26)
[2024-11-18] VITALS (10 sets, daily range): BP systolic 110–135; BP diastolic 72–87; TEMP 96.8–97.8; O2SAT 90–98
[2024-11-18] MEDS ORDERED: fentaNYL 100 MCG/2 ML INJECTION IV PRN (00:25)
[2024-11-18] MEDS ORDERED: METOCLOPRAMIDE INJ 10MG/2ML VIAL IV PRN (00:25)
[2024-11-18] MEDS ORDERED: ONDANSETRON 4MG 2ML VIAL IV PRN (00:25)
[2024-11-18] MEDS: oxyCODONE 5MG TAB PO PRN (00:43)
[2024-11-18] MEDS: HYDROMORPHONE HCL 0.5 MG/ 0.5 ML SYRINGE IV PRN (00:43)
[2024-11-18] MEDS: VANCOMYCIN 1,250 MG/250 ML IV BAG IV SCH (01:32)
[2024-11-18 06:10] LABS: HEMATOCRIT 36.5 % (42.0-52.0); HEMOGLOBIN 11.7 g/dl (13.5-17.5); MEAN CORPUSCULAR HEMOGLOBIN 26.4 pg (27.0-33.0); MEAN CORPUSCULAR HGB CONC 32.1 g/dl (32.0-36.5); MEAN CORPUSCULAR VOLUME 82.2 fl (80.0-96.0); PLATELET COUNT, AUTOMATED 316 10^3/uL (150-450); RED BLOOD COUNT 4.44 10^6/uL (4.30-6.10)
[2024-11-18 06:32] LABS: BLOOD UREA NITROGEN 16 MG/DL (9-23); CALCIUM LEVEL 9.1 MG/DL (8.5-10.1); CARBON DIOXIDE LEVEL 26 MMOL/L (20-31); CHLORIDE LEVEL 102 MMOL/L (98-107); CREATININE FOR GFR 0.57 MG/DL (0.70-1.30); GLOMERULAR FILTRATION RATE > 60.0 (>56); GLUCOSE, FASTING 191 MG/DL (60-100); POTASSIUM SERUM 4.2 MMOL/L (3.5-5.1); SODIUM LEVEL 139 MMOL/L (136-145)
[2024-11-18 06:44] LABS: C REACTIVE PROTEIN QUANTITATIV 24.47 MG/DL (<1.0)
[2024-11-18] MEDS: VANCOMYCIN HCL 1,000 MG, VIAL MATE ADAPTER 1 EACH in NS 250 ML IV SCH (12:41)
[2024-11-18] MEDS: VANCOMYCIN 1,000MG/200 ML IV BAG IV SCH (20:22)
[2024-11-19] VITALS (7 sets, daily range): BP systolic 112–133; BP diastolic 73–89; TEMP 97–97.7; O2SAT 95–98
[2024-11-19 06:30] LABS: HEMATOCRIT 29.4 % (42.0-52.0); MEAN CORPUSCULAR HEMOGLOBIN 26.7 pg (27.0-33.0); MEAN CORPUSCULAR HGB CONC 32.7 g/dl (32.0-36.5); MEAN CORPUSCULAR VOLUME 81.7 fl (80.0-96.0); PLATELET COUNT, AUTOMATED 286 10^3/uL (150-450); WHITE BLOOD COUNT 6.8 10^3/uL (4.0-10.0)
[2024-11-19 06:33] LABS: HEMOGLOBIN 9.6 g/dl (13.5-17.5)
[2024-11-19 07:00] LABS: BLOOD UREA NITROGEN 15 MG/DL (9-23); CALCIUM LEVEL 8.7 MG/DL (8.5-10.1); CARBON DIOXIDE LEVEL 30 MMOL/L (20-31); CHLORIDE LEVEL 105 MMOL/L (98-107); CREATININE FOR GFR 0.57 MG/DL (0.70-1.30); GLOMERULAR FILTRATION RATE > 60.0 (>56); GLUCOSE, FASTING 92 MG/DL (60-100); POTASSIUM SERUM 4.1 MMOL/L (3.5-5.1); SODIUM LEVEL 141 MMOL/L (136-145)
[2024-11-19] MEDS ORDERED: LACTOBACILLUS ACIDOPHILUS CAP (BACID) PO SCH (09:00)
[2024-11-20] MEDS: VANCOMYCIN HCL 1,000 MG, VIAL MATE ADAPTER 1 EACH in NS 250 ML IV SCH (04:29)
[2024-11-20 05:39] VITALS: BP 113/80; TEMP 97.5; O2SAT 96
[2024-11-20 07:09] LABS: HEMATOCRIT 33.4 % (42.0-52.0); HEMOGLOBIN 10.8 g/dl (13.5-17.5); MEAN CORPUSCULAR HEMOGLOBIN 26.7 pg (27.0-33.0); MEAN CORPUSCULAR HGB CONC 32.3 g/dl (32.0-36.5); MEAN CORPUSCULAR VOLUME 82.7 fl (80.0-96.0); PLATELET COUNT, AUTOMATED 337 10^3/uL (150-450); RED BLOOD COUNT 4.04 10^6/uL (4.30-6.10); WHITE BLOOD COUNT 4.1 10^3/uL (4.0-10.0)
[2024-11-20 07:23] LABS: BLOOD UREA NITROGEN 12 MG/DL (9-23); CALCIUM LEVEL 9.4 MG/DL (8.5-10.1); CARBON DIOXIDE LEVEL 30 MMOL/L (20-31); CHLORIDE LEVEL 104 MMOL/L (98-107); CREATININE FOR GFR 0.54 MG/DL (0.70-1.30); GLOMERULAR FILTRATION RATE > 60.0 (>56); GLUCOSE, FASTING 97 MG/DL (60-100); POTASSIUM SERUM 4.4 MMOL/L (3.5-5.1); SODIUM LEVEL 141 MMOL/L (136-145)
[2024-11-20 08:00] VITALS: BP 118/68; TEMP 97.5; O2SAT 96
[2024-11-20] MEDS: MORPHINE 4 MG/ML 1ML VIAL IV PRN (08:24)
[2024-11-20] MEDS: SENNA 8.6 MG TAB (SENOKOT) PO SCH (10:15)
[2024-11-20] MEDS: KETOROLAC 30 MG/ML 1ML VIAL IV SCH (10:15)
[2024-11-20 12:00] VITALS: BP 120/72; TEMP 97.6; O2SAT 95
[2024-11-20] MEDS: metroNIDAZOLE (FLAGYL) 500MG TABLET PO SCH (15:02)
[2024-11-20 16:00] VITALS: BP 117/69; TEMP 97.5; O2SAT 97
[2024-11-20] MEDS: cefTRIAXone SOD 2 GM in DEXTROSE 5% (D5W) ADV/MINI-BAG 50 ML IV SCH (16:40)
[2024-11-20 19:55] VITALS: BP 115/80; TEMP 97.3; O2SAT 97
[2024-11-21] VITALS (10 sets, daily range): BP systolic 120–140; BP diastolic 76–99; TEMP 97.3–97.9; O2SAT 92–100
[2024-11-21 06:36] LABS: HEMATOCRIT 33.4 % (42.0-52.0); HEMOGLOBIN 10.9 g/dl (13.5-17.5); MEAN CORPUSCULAR HEMOGLOBIN 26.8 pg (27.0-33.0); MEAN CORPUSCULAR HGB CONC 32.6 g/dl (32.0-36.5); MEAN CORPUSCULAR VOLUME 82.1 fl (80.0-96.0); PLATELET COUNT, AUTOMATED 361 10^3/uL (150-450); RED BLOOD COUNT 4.07 10^6/uL (4.30-6.10)
[2024-11-21 06:54] LABS: C REACTIVE PROTEIN QUANTITATIV 3.48 MG/DL (<1.0)
[2024-11-21 06:55] LABS: BLOOD UREA NITROGEN 12 MG/DL (9-23); CALCIUM LEVEL 9.2 MG/DL (8.5-10.1); CARBON DIOXIDE LEVEL 30 MMOL/L (20-31); CHLORIDE LEVEL 104 MMOL/L (98-107); CREATININE FOR GFR 0.59 MG/DL (0.70-1.30); GLOMERULAR FILTRATION RATE > 60.0 (>56); GLUCOSE, FASTING 90 MG/DL (60-100); POTASSIUM SERUM 4.6 MMOL/L (3.5-5.1); SODIUM LEVEL 142 MMOL/L (136-145)
[2024-11-21] MEDS ORDERED: LIDOCAINE 1% MDV 20ML VIAL As Ordered ONE (08:20)
[2024-11-21] MEDS: cefTRIAXone SOD 1GM VIAL As Ordered ONE (09:37)
[2024-11-21] MEDS ORDERED: BACITRACIN OINTMENT 30GM TUBE As Ordered ONE (09:48)
[2024-11-21] MEDS ORDERED: HYDROMORPHONE HCL 0.5 MG/ 0.5 ML SYRINGE IV PRN (10:25)
[2024-11-21] MEDS ORDERED: ONDANSETRON 4MG 2ML VIAL IV PRN (10:25)
[2024-11-21] MEDS: oxyCODONE 5MG TAB PO PRN (10:36)
[2024-11-21] MEDS: fentaNYL 100 MCG/2 ML INJECTION IV PRN (10:37)
[2024-11-21] MEDS ORDERED: cefTRIAXone SOD 1 GM in DEXTROSE 5% (D5W) ADV/MINI-BAG 50 ML IV SCH (16:00)
[2024-11-21] MEDS: cefTRIAXone SOD 1 GM in DEXTROSE 5% (D5W) ADV/MINI-BAG 50 ML IV SCH (16:10)
[2024-11-22] VITALS: BP 127/73; TEMP 98.1; O2SAT 95
[2024-11-22 04:00] VITALS: BP 135/84; TEMP 97.9; O2SAT 97
[2024-11-22 06:41] LABS: HEMATOCRIT 32.5 % (42.0-52.0); HEMOGLOBIN 10.6 g/dl (13.5-17.5); MEAN CORPUSCULAR HEMOGLOBIN 26.4 pg (27.0-33.0); MEAN CORPUSCULAR HGB CONC 32.6 g/dl (32.0-36.5); PLATELET COUNT, AUTOMATED 340 10^3/uL (150-450); RED BLOOD COUNT 4.01 10^6/uL (4.30-6.10); WHITE BLOOD COUNT 5.5 10^3/uL (4.0-10.0)
[2024-11-22 07:15] LABS: BLOOD UREA NITROGEN 19 MG/DL (9-23); CALCIUM LEVEL 9.2 MG/DL (8.5-10.1); CARBON DIOXIDE LEVEL 29 MMOL/L (20-31); CHLORIDE LEVEL 102 MMOL/L (98-107); CREATININE FOR GFR 0.58 MG/DL (0.70-1.30); GLOMERULAR FILTRATION RATE > 60.0 (>56); GLUCOSE, FASTING 115 MG/DL (60-100); POTASSIUM SERUM 3.9 MMOL/L (3.5-5.1); SODIUM LEVEL 141 MMOL/L (136-145)
[2024-11-22 08:00] VITALS: BP 130/84; TEMP 97.7; O2SAT 95
[2024-11-22] MEDS ORDERED: OXYC1TAB23 PO (08:19)
[2024-11-22] MEDS ORDERED: PROBCAP14 PO (08:19)
[2024-11-22] MEDS ORDERED: IBUP-1022 PO (08:19)
[2024-11-22] MEDS ORDERED: CEFA500C2 PO (08:19)
[2024-11-22] MEDS: CEFUROXIME 500 MG TAB PO SCH (11:16)
[2024-11-22 12:00] VITALS: BP 129/87; TEMP 97.7
== END 2024-11-22 12:30 | disposition home or self-care (01) | DRG 364 ==
LOC: M ED 09:07 → M ED INP 15:53 → M PCU 22:25 → M MS5PR 11-17 14:06
PROVIDERS: ADMIT Student in an Organized Health Care Education/Training Program; ATTEND Internal Medicine Nephrology
PROC: 0K980ZZ Drainage of Left Upper Arm Muscle, Open Approach (ICD-10-PCS; principal; 2024-11-18)
PROC: 0KD80ZZ Extraction of Left Upper Arm Muscle, Open Approach (ICD-10-PCS; 2024-11-18)
PROC: 3E1U38Z Irrigation of Joints using Irrigating Substance, Percutaneous Approach (ICD-10-PCS; 2024-11-21)
DX: L02.414 Cutaneous abscess of left upper limb (principal); F32.A Depression, unspecified; J45.909 Unspecified asthma, uncomplicated; K21.9 Gastro-esophageal reflux disease without esophagitis; K22.70 Barrett's esophagus without dysplasia; R33.9 Retention of urine, unspecified; F41.9 Anxiety disorder, unspecified; F17.200 Nicotine dependence, unspecified, uncomplicated; K44.9 Diaphragmatic hernia without obstruction or gangrene; F14.988 Cocaine use, unspecified with other cocaine-induced disorder; Z79.899 Other long term (current) drug therapy; Z88.0 Allergy status to penicillin; Z88.6 Allergy status to analgesic agent

== ENCOUNTER → 2025-01-04 | Outpatient (REF) | payer OTHER ==
[~2025-01-04] MED LIST changes: +ALBU8.5H; +BUPR1FIL SL; +CEFA500C2 PO; +IBUP-1022 PO; +OMEP40CA5; +OXYC1TAB23 PO; +PROBCAP14 PO
[2025-01-04 17:24] LABS: BASO % 0.4 % (0.0-1.0); EOS # 0.3 10^3/uL (0.0-0.5); EOS % 4.3 % (0.0-3.0); HEMATOCRIT 32.5 % (42.0-52.0); HEMOGLOBIN 10.4 g/dl (13.5-17.5); LYMPH % 14.7 % (24.0-44.0); MEAN CORPUSCULAR HEMOGLOBIN 26.1 pg (27.0-33.0); MEAN CORPUSCULAR VOLUME 81.7 fl (80.0-96.0); MONO # 0.4 10^3/uL (0.0-0.8); MONO % 5.7 % (2.0-8.0); NEUTROPHILS # 5.1 10^3/uL (1.5-8.5); NEUTROPHILS % 74.6 % (36.0-66.0); PLATELET COUNT, AUTOMATED 258 10^3/uL (150-450); RED BLOOD COUNT 3.98 10^6/uL (4.30-6.10); WHITE BLOOD COUNT 6.8 10^3/uL (4.0-10.0)
[2025-01-04 17:29] LABS: ERYTHROCYTE SEDIMENTATION RATE 28 mm/hr (0-20)
[2025-01-04 17:43] LABS: BLOOD UREA NITROGEN 10 MG/DL (9-23); C REACTIVE PROTEIN QUANTITATIV 7.53 MG/DL (<1.0); CALCIUM LEVEL 8.4 MG/DL (8.5-10.1); CARBON DIOXIDE LEVEL 29 MMOL/L (20-31); CHLORIDE LEVEL 106 MMOL/L (98-107); CREATININE FOR GFR 0.66 MG/DL (0.70-1.30); GLOMERULAR FILTRATION RATE > 60.0 (>56); GLUCOSE, FASTING 99 MG/DL (60-100); IRON (FE) 16 UG/DL (65-175); PERCENT SATURATION 4.6 % (19.7-50.0); POTASSIUM SERUM 3.7 MMOL/L (3.5-5.1); SODIUM LEVEL 142 MMOL/L (136-145); TOTAL IRON BINDING CAPACITY 351 UG/DL (250-425)
[2025-01-04 17:46] LABS: FERRITIN 45.1 NG/ML (10.5-307.3)
== END ==
LOC: M LAB REF 16:32
PROVIDERS: ATTEND Physician Assistant
DX: D64.9 Anemia, unspecified (principal); L03.114 Cellulitis of left upper limb

== ENCOUNTER 2025-01-16 12:37 | Emergency (ER) | payer OTHER ==
[~2025-01-16] VITALS: Ht 167.6 cm; Wt 67.1 kg
[2025-01-16 12:52] VITALS: TEMP 96.7
[2025-01-16 13:28] LABS: BASO % 0.5 % (0.0-1.0); EOS % 0.5 % (0.0-3.0); HEMATOCRIT 36.4 % (42.0-52.0); HEMOGLOBIN 11.6 g/dl (13.5-17.5); LYMPH # 1.9 10^3/uL (1.5-5.0); LYMPH % 21.6 % (24.0-44.0); MEAN CORPUSCULAR HEMOGLOBIN 25.1 pg (27.0-33.0); MEAN CORPUSCULAR HGB CONC 31.9 g/dl (32.0-36.5); MEAN CORPUSCULAR VOLUME 78.8 fl (80.0-96.0); MONO # 0.5 10^3/uL (0.0-0.8); MONO % 5.2 % (2.0-8.0); NEUTROPHILS # 6.3 10^3/uL (1.5-8.5); PLATELET COUNT, AUTOMATED 352 10^3/uL (150-450); RED BLOOD COUNT 4.62 10^6/uL (4.30-6.10); WHITE BLOOD COUNT 8.7 10^3/uL (4.0-10.0)
[2025-01-16 13:54] LABS: ETHYL ALCOHOL (ETHANOL) < 0.003 % (0.000-0.010)
[2025-01-16 13:56] LABS: ALBUMIN 3.9 G/DL (3.2-5.2); ALKALINE PHOSPHATASE 91 U/L (40-129); ALT/SGPT 14 U/L (7.0-40); AST/SGOT 13 U/L (<34); BILIRUBIN,DIRECT 0.1 MG/DL (<0.4); BILIRUBIN,TOTAL 0.5 MG/DL (0.3-1.2); BLOOD UREA NITROGEN 12 MG/DL (9-23); CALCIUM LEVEL 8.9 MG/DL (8.5-10.1); CARBON DIOXIDE LEVEL 26 MMOL/L (20-31); CHLORIDE LEVEL 102 MMOL/L (98-107); GLOMERULAR FILTRATION RATE > 60.0 (>56); GLUCOSE, FASTING 119 MG/DL (60-100); POTASSIUM SERUM 3.6 MMOL/L (3.5-5.1); SALICYLATE LEVEL < 3.0 MG/DL (<30); SODIUM LEVEL 139 MMOL/L (136-145); TOTAL PROTEIN 7.7 G/DL (5.7-8.2)
[2025-01-16 13:58] LABS: THYROID STIMULATING HORMONE 1.523 uIU/ML (0.55-4.78)
[2025-01-16 14:03] LABS: CPK CREATINE PHOSPHOKINASE 74 U/L (46-171)
[2025-01-16] MEDS: PREPARATION H SUPP (HEMORRHOID) PR STA (14:54)
[2025-01-16] MEDS: MAGNESIUM CITRATE 300ML BTL PO ONE (14:54)
[2025-01-16 15:45] VITALS: BP 169/85; O2SAT 100
== END 2025-01-16 15:53 | disposition left against medical advice (07) ==
LOC: M ED 12:37
DX: F14.10 Cocaine abuse, uncomplicated (principal); R00.0 Tachycardia, unspecified; I49.3 Ventricular premature depolarization; J45.909 Unspecified asthma, uncomplicated; K22.70 Barrett's esophagus without dysplasia; F19.10 Other psychoactive substance abuse, uncomplicated; Z88.0 Allergy status to penicillin; Z88.6 Allergy status to analgesic agent; Z79.52 Long term (current) use of systemic steroids; Z79.1 Long term (current) use of non-steroidal anti-inflammatories (NSAID); Z79.899 Other long term (current) drug therapy; Z53.9 Procedure and treatment not carried out, unspecified reason

== ENCOUNTER 2025-01-21 23:14 | Emergency (ER) | payer OTHER ==
[~2025-01-21] VITALS: Ht 172.7 cm; Wt 81.8 kg
[2025-01-21] MEDS: NS (Normal Saline) 0.9% 1,000 ML IV ONE (23:30)
[2025-01-21 23:46] LABS: HEMATOCRIT 29.3 % (42.0-52.0); HEMOGLOBIN 9.7 g/dl (13.5-17.5); MEAN CORPUSCULAR HEMOGLOBIN 25.9 pg (27.0-33.0); MEAN CORPUSCULAR HGB CONC 33.1 g/dl (32.0-36.5); MEAN CORPUSCULAR VOLUME 78.1 fl (80.0-96.0); PLATELET COUNT, AUTOMATED 309 10^3/uL (150-450); RED BLOOD COUNT 3.75 10^6/uL (4.30-6.10); WHITE BLOOD COUNT 20.8 10^3/uL (4.0-10.0)
[2025-01-22 00:07] LABS: ETHYL ALCOHOL (ETHANOL) < 0.003 % (0.000-0.010)
[2025-01-22 00:09] LABS: ALBUMIN 2.4 G/DL (3.2-5.2); ALKALINE PHOSPHATASE 134 U/L (40-129); ALT/SGPT 12 U/L (7.0-40); AST/SGOT 14 U/L (<34); BILIRUBIN,DIRECT 0.2 MG/DL (<0.4); BILIRUBIN,TOTAL 0.3 MG/DL (0.3-1.2); BLOOD UREA NITROGEN 14 MG/DL (9-23); CALCIUM LEVEL 8.1 MG/DL (8.5-10.1); CARBON DIOXIDE LEVEL 22 MMOL/L (20-31); CHLORIDE LEVEL 103 MMOL/L (98-107); CPK CREATINE PHOSPHOKINASE 54 U/L (46-171); CREATININE FOR GFR 1.01 MG/DL (0.70-1.30); GLOMERULAR FILTRATION RATE > 60.0 (>56); GLUCOSE, FASTING 171 MG/DL (60-100); POTASSIUM SERUM 3.1 MMOL/L (3.5-5.1); SALICYLATE LEVEL < 3.0 MG/DL (<30); SODIUM LEVEL 138 MMOL/L (136-145); TOTAL PROTEIN 6.2 G/DL (5.7-8.2)
[2025-01-22 00:11] LABS: THYROID STIMULATING HORMONE 7.375 uIU/ML (0.55-4.78)
[2025-01-22 00:28] LABS: LYMPHOCYTES 2 % (16-44); MONOCYTES 2 % (0-5); NEUTROPHILS 93 % (28-66); PLATELET ESTIMATE NORMAL (NORMAL)
[2025-01-22 00:29] LABS: MICROCYTOSIS 1+; POIKILOCYTOSIS 1+
[2025-01-22] MEDS ORDERED: ISOVUE-370 76% 100ML VIAL As Ordered ONE (02:07)
[2025-01-22 02:36] LABS: C REACTIVE PROTEIN QUANTITATIV 25.57 MG/DL (<1.0)
[2025-01-22 04:00] VITALS: BP 109/62; TEMP 98; O2SAT 99
[2025-01-22] MEDS: DALBAVANCIN 1,500 MG in D5W 250 ML IV ONE (04:08)
[2025-01-22] MEDS: POTASSIUM CHLORIDE 10% LIQ 20MEQ/15ML UDC PO ONE (04:08)
[2025-01-22] MEDS ORDERED: BACTDSTA PO (12:19)
== END 2025-01-22 04:12 | disposition left against medical advice (07) ==
LOC: M ED 23:14 → EDBD 23:14 → M ED 01-22 04:12
DX: R22.31 Localized swelling, mass and lump, right upper limb (principal); M01.X41 Direct infection of right hand in infectious and parasitic diseases classified elsewhere; J45.909 Unspecified asthma, uncomplicated; F32.A Depression, unspecified; K21.9 Gastro-esophageal reflux disease without esophagitis; K22.70 Barrett's esophagus without dysplasia; F19.10 Other psychoactive substance abuse, uncomplicated; Z88.0 Allergy status to penicillin; Z88.6 Allergy status to analgesic agent; Z79.52 Long term (current) use of systemic steroids; Z79.2 Long term (current) use of antibiotics; Z79.899 Other long term (current) drug therapy; Z53.9 Procedure and treatment not carried out, unspecified reason
CPT/HCPCS: 71045; 80048; 80076; 80143; 82077; 82550; 84443; 85025; 86140; 87040; 93005; 93041; 94760; 96361; 96374; 99285; J0875

== ENCOUNTER 2025-01-22 23:24 | Emergency (ER) | payer OTHER ==
[~2025-01-22] VITALS: Ht 167.6 cm; Wt 68.2 kg
[~2025-01-22 23:24] MED LIST changes: +BACTDSTA PO
[2025-01-22 23:35] VITALS: TEMP 97.8
[2025-01-23 01:45] VITALS: BP 123/67
[2025-01-23 02:15] VITALS: O2SAT 94
== END 2025-01-23 02:30 | disposition home or self-care (01) ==
LOC: M ED 23:24
DX: F19.10 Other psychoactive substance abuse, uncomplicated (principal); F11.10 Opioid abuse, uncomplicated; Z88.0 Allergy status to penicillin; Z88.6 Allergy status to analgesic agent; Z79.1 Long term (current) use of non-steroidal anti-inflammatories (NSAID); Z79.899 Other long term (current) drug therapy

== ENCOUNTER 2025-05-29 21:12 | Emergency (ER) | payer OTHER ==
[~2025-05-29] VITALS: Ht 167.6 cm; Wt 72.7 kg
[~2025-05-29 21:12] MED LIST changes: -FLOM0.4C39 PO; +SUBO8MIS PO; +TAMS-18 PO
[2025-05-29 21:15] VITALS: BP 150/94; TEMP 99.1; O2SAT 98
== END 2025-05-30 02:03 | disposition left against medical advice (07) ==
LOC: M ED 21:12
DX: Z53.21 Procedure and treatment not carried out due to patient leaving prior to being seen by health care provider (principal)

== ENCOUNTER 2025-05-30 19:11 | Emergency (ER) | payer OTHER ==
[~2025-05-30] VITALS: Ht 167.6 cm; Wt 66.0 kg
[2025-05-30 19:18] VITALS: BP 140/91; TEMP 97; O2SAT 100
== END 2025-05-30 23:59 | disposition left against medical advice (07) ==
LOC: M ED 19:11
DX: Z53.21 Procedure and treatment not carried out due to patient leaving prior to being seen by health care provider (principal)

== ENCOUNTER 2025-06-03 06:46 | Emergency (ER) | payer OTHER ==
[~2025-06-03] VITALS: Ht 167.6 cm; Wt 65.0 kg
[2025-06-03 12:47] LABS: KETONE, URINE AUTO RFX NEGATIVE (NEGATIVE); LEUKOCYTE ESTERASE UR AUTO RFX NEGATIVE (NEGATIVE); MUCUS, URINE RFX SMALL (NEGATIVE); NITRITE, URINE AUTO RFX NEGATIVE (NEGATIVE); RBC, URINE AUTO RFX 10 /HPF (0-3); SQUAM EPITHELIAL CELL UR AURFX 0 /HPF (0-6); WBC, URINE AUTO RFX 1 /HPF (0-3)
[2025-06-03 13:06] LABS: BARBITURATES URINE NEGATIVE (NEGATIVE); BENZODIAZEPINES URINE NEGATIVE (NEGATIVE); COCAINE METABOLITE URINE NEGATIVE (NEGATIVE); METHADONE URINE NEGATIVE (NEGATIVE); OPIATES URINE NEGATIVE (NEGATIVE); PHENCYCLIDINE URINE NEGATIVE (NEGATIVE)
[2025-06-03 13:07] LABS: CANNABINOIDS URINE NEGATIVE (NEGATIVE)
[2025-06-03 13:26] LABS: AMPHETAMINES LEVEL URINE POSITIVE (NEGATIVE)
[2025-06-03 13:54] LABS: Trichomonas vaginalis (AMP) NOT DETECTED (NEGATIVE)
[2025-06-03 14:17] LABS: GC DNA AMPLIFICATION NEGATIVE (NEGATIVE)
[2025-06-03] MEDS ORDERED: HOME MED LIST COMPLETE! XX SCH (14:45)
[2025-06-03] MEDS ORDERED: ISOVUE-370 76% 100 ML VIAL As Ordered ONE (14:47)
[2025-06-03 15:20] LABS: BASO # 0.0 10^3/uL (0.0-0.2); BASO % 0.4 % (0.0-1.0); EOS # 0.2 10^3/uL (0.0-0.5); EOS % 4.1 % (0.0-3.0); LYMPH # 1.2 10^3/uL (1.5-5.0); LYMPH % 25.6 % (24.0-44.0); MONO # 0.3 10^3/uL (0.0-0.8); MONO % 6.4 % (2.0-8.0); NEUTROPHILS # 3.0 10^3/uL (1.5-8.5); NEUTROPHILS % 63.5 % (36.0-66.0); PLATELET COUNT, AUTOMATED 266 10^3/uL (150-450)
[2025-06-03 15:55] LABS: ALT/SGPT 17 U/L (7.0-40); AST/SGOT 19 U/L (<34); CALCIUM LEVEL 7.4 MG/DL (8.5-10.1); CARBON DIOXIDE LEVEL 23 MMOL/L (20-31); CHLORIDE LEVEL 105 MMOL/L (98-107); CREATININE FOR GFR 0.68 MG/DL (0.70-1.30); GLOMERULAR FILTRATION RATE > 90.0 (>56); POTASSIUM SERUM 3.6 MMOL/L (3.5-5.1); SODIUM LEVEL 141 MMOL/L (136-145)
[2025-06-03 16:37] VITALS: TEMP 97.9
[2025-06-03] MEDS ORDERED: MIRA3350 PO (16:38)
[2025-06-03] MEDS ORDERED: CIPR250T3 PO (16:38)
[2025-06-03] MEDS ORDERED: COLA100C5 PO (16:38)
[2025-06-03] MEDS ORDERED: KETO-204 PO (16:38)
[2025-06-03 16:45] VITALS: BP 141/92; O2SAT 97
[2025-06-03] MEDS: KETOROLAC 30 MG/ML 1 ML VIAL IV ONE (16:51)
== END 2025-06-03 17:00 | disposition home or self-care (01) ==
LOC: M ED 06:46
DX: N45.1 Epididymitis (principal); K40.90 Unilateral inguinal hernia, without obstruction or gangrene, not specified as recurrent; K59.00 Constipation, unspecified; J45.909 Unspecified asthma, uncomplicated; F15.10 Other stimulant abuse, uncomplicated; Z88.0 Allergy status to penicillin; Z88.6 Allergy status to analgesic agent; Z79.2 Long term (current) use of antibiotics; Z79.899 Other long term (current) drug therapy
CPT/HCPCS: 72193; 76870; 80047; 80053; 80307; 81001; 82248; 83605; 85025; 87661; 87810; 87850; 93976; 96374; 99284; J1885; Q9967

== ENCOUNTER 2025-06-07 22:35 | Emergency (ER) | payer OTHER ==
[~2025-06-07] VITALS: Ht 167.6 cm; Wt 63.7 kg
[~2025-06-07 22:35] MED LIST changes: +CIPR250T3 PO; +COLA100C5 PO; +KETO-204 PO; +MIRA3350 PO
[2025-06-07 22:41] VITALS: TEMP 98.2
[2025-06-08 00:38] VITALS: BP 142/92; O2SAT 99
== END 2025-06-08 02:46 | disposition left against medical advice (07) ==
LOC: M ED 22:35
DX: Z53.21 Procedure and treatment not carried out due to patient leaving prior to being seen by health care provider (principal)

== ENCOUNTER 2025-06-10 00:44 | Emergency (ER) | payer OTHER ==
[~2025-06-10] VITALS: Ht 167.6 cm; Wt 62.1 kg
[2025-06-10 00:56] VITALS: BP 140/90; TEMP 99.1; O2SAT 97
== END 2025-06-10 01:59 | disposition left against medical advice (07) ==
LOC: M ED 00:44
DX: Z53.21 Procedure and treatment not carried out due to patient leaving prior to being seen by health care provider (principal)

== ENCOUNTER 2025-06-19 20:23 | Emergency (ER) | payer OTHER ==
[~2025-06-19] VITALS: Ht 167.6 cm; Wt 75.0 kg
[2025-06-20] MEDS ORDERED: ISOVUE-370 76% 100 ML VIAL As Ordered ONE (04:46)
[2025-06-20 05:01] LABS: PLATELET COUNT, AUTOMATED 272 10^3/uL (150-450)
[2025-06-20 05:22] LABS: CALCIUM LEVEL 8.3 MG/DL (8.5-10.1); CARBON DIOXIDE LEVEL 28 MMOL/L (20-31); CHLORIDE LEVEL 105 MMOL/L (98-107); CREATININE FOR GFR 0.78 MG/DL (0.70-1.30); GLOMERULAR FILTRATION RATE > 90.0 (>56); POTASSIUM SERUM 3.8 MMOL/L (3.5-5.1); SODIUM LEVEL 144 MMOL/L (136-145)
[2025-06-20 07:57] LABS: KETONE, URINE AUTO RFX NEGATIVE (NEGATIVE); LEUKOCYTE ESTERASE UR AUTO RFX NEGATIVE (NEGATIVE); MUCUS, URINE RFX SMALL (NEGATIVE); NITRITE, URINE AUTO RFX NEGATIVE (NEGATIVE); RBC, URINE AUTO RFX 0 /HPF (0-3); SQUAM EPITHELIAL CELL UR AURFX 0 /HPF (0-6); WBC, URINE AUTO RFX 2 /HPF (0-3)
[2025-06-20 08:00] VITALS: O2SAT 100
[2025-06-20] MEDS: MAGNESIUM CITRATE 300 ML BTL PO ONE (08:07)
[2025-06-20 08:08] VITALS: BP 140/96; TEMP 98.5
[2025-06-20] MEDS ORDERED: COLA100C5 PO (08:21)
[2025-06-20] MEDS ORDERED: MIRA3350 PO (08:21)
== END 2025-06-20 08:31 | disposition home or self-care (01) ==
LOC: M ED 20:23
DX: K59.00 Constipation, unspecified (principal); K40.90 Unilateral inguinal hernia, without obstruction or gangrene, not specified as recurrent; J98.11 Atelectasis; I86.1 Scrotal varices; Z88.0 Allergy status to penicillin; Z88.6 Allergy status to analgesic agent; Z79.899 Other long term (current) drug therapy
CPT/HCPCS: 74177; 76870; 80048; 81001; 83605; 85027; 93976; 99285; Q9967

== ENCOUNTER 2025-06-22 15:03 | Emergency (ER) | payer OTHER ==
[~2025-06-22] VITALS: Ht 167.6 cm; Wt 64.8 kg
[2025-06-22 15:14] VITALS: TEMP 98.7
[2025-06-22 15:29] LABS: BASO # 0.0 10^3/uL (0.0-0.2); BASO % 0.6 % (0.0-1.0); EOS # 0.2 10^3/uL (0.0-0.5); EOS % 2.9 % (0.0-3.0); LYMPH # 1.6 10^3/uL (1.5-5.0); LYMPH % 31.4 % (24.0-44.0); MONO # 0.4 10^3/uL (0.0-0.8); MONO % 8.4 % (2.0-8.0); NEUTROPHILS # 3.0 10^3/uL (1.5-8.5); NEUTROPHILS % 56.3 % (36.0-66.0); PLATELET COUNT, AUTOMATED 366 10^3/uL (150-450)
[2025-06-22] MEDS ORDERED: LABETALOL 100 MG/20 ML VIAL IV STA (15:29)
[2025-06-22 15:56] LABS: ETHYL ALCOHOL (ETHANOL) < 0.003 % (0.000-0.010)
[2025-06-22 15:57] LABS: SALICYLATE LEVEL < 3.0 MG/DL (<30)
[2025-06-22 15:58] LABS: ALT/SGPT 27 U/L (7.0-40); AST/SGOT 24 U/L (<34); CALCIUM LEVEL 8.9 MG/DL (8.5-10.1); CARBON DIOXIDE LEVEL 26 MMOL/L (20-31); CHLORIDE LEVEL 99 MMOL/L (98-107); CK-MB VALUE MASS 4.9 NG/ML (<3.6); CPK CREATINE PHOSPHOKINASE 184 U/L (46-171); CREATININE FOR GFR 0.85 MG/DL (0.70-1.30); GLOMERULAR FILTRATION RATE > 90.0 (>56); MB/CK RELATIVE INDEX 2.66 (< OR =4); POTASSIUM SERUM 3.8 MMOL/L (3.5-5.1); SODIUM LEVEL 136 MMOL/L (136-145)
[2025-06-22 16:50] LABS: CK-MB VALUE MASS 4.9 NG/ML (<3.6)
[2025-06-22 16:52] LABS: CPK CREATINE PHOSPHOKINASE 158.0 U/L (46-171); MB/CK RELATIVE INDEX 3.1 (< OR =4)
[2025-06-22] MEDS: NS (Normal Saline) 0.9% 1,000 ML IV SCH (17:10)
[2025-06-22 17:33] LABS: BARBITURATES URINE NEGATIVE (NEGATIVE); BENZODIAZEPINES URINE NEGATIVE (NEGATIVE); METHADONE URINE NEGATIVE (NEGATIVE); OPIATES URINE NEGATIVE (NEGATIVE); PHENCYCLIDINE URINE NEGATIVE (NEGATIVE)
[2025-06-22 17:55] LABS: AMPHETAMINES LEVEL URINE POSITIVE (NEGATIVE); CANNABINOIDS URINE POSITIVE (NEGATIVE); COCAINE METABOLITE URINE POSITIVE (NEGATIVE)
[2025-06-22 18:00] VITALS: BP 156/95; O2SAT 100
== END 2025-06-22 18:36 | disposition home or self-care (01) ==
LOC: M ED 15:03 → EDBD 15:03 → M ED 18:36
DX: T40.411A Poisoning by fentanyl or fentanyl analogs, accidental (unintentional), initial encounter (principal); J45.909 Unspecified asthma, uncomplicated; K21.9 Gastro-esophageal reflux disease without esophagitis; F32.A Depression, unspecified; F41.9 Anxiety disorder, unspecified; F19.10 Other psychoactive substance abuse, uncomplicated; F17.200 Nicotine dependence, unspecified, uncomplicated; Z88.0 Allergy status to penicillin; Z88.6 Allergy status to analgesic agent; Z79.899 Other long term (current) drug therapy

== ENCOUNTER 2025-07-01 20:16 | Emergency (ER) | payer OTHER ==
[~2025-07-01] VITALS: Ht 167.6 cm; Wt 58.4 kg
[~2025-07-01 20:16] MED LIST changes: +SUBO8MIS SL
[2025-07-01 22:26] VITALS: BP 148/97; TEMP 97.7; O2SAT 99
== END 2025-07-01 23:41 | disposition left against medical advice (07) ==
LOC: M ED 20:16
DX: Z53.21 Procedure and treatment not carried out due to patient leaving prior to being seen by health care provider (principal)

== ENCOUNTER 2025-07-21 17:04 | Inpatient (IN) | payer OTHER ==
[~2025-07-21] VITALS: Ht 167.6 cm; Wt 62.5 kg
[~2025-07-21 17:04] MED LIST changes: -IBUP-1022 PO; +IBUP600T42 PO
[2025-07-21 17:59] LABS: PLATELET COUNT, AUTOMATED 313 10^3/uL (150-450)
[2025-07-21 18:26] LABS: ALT/SGPT 23 U/L (7.0-40); AST/SGOT 26 U/L (<34); CALCIUM LEVEL 9.1 MG/DL (8.5-10.1); CARBON DIOXIDE LEVEL 26 MMOL/L (20-31); CHLORIDE LEVEL 104 MMOL/L (98-107); CREATININE FOR GFR 0.76 MG/DL (0.70-1.30); GLOMERULAR FILTRATION RATE > 90.0 (>56); POTASSIUM SERUM 4.4 MMOL/L (3.5-5.1); SALICYLATE LEVEL < 3.0 MG/DL (<30); SODIUM LEVEL 140 MMOL/L (136-145)
[2025-07-21 18:29] LABS: ETHYL ALCOHOL (ETHANOL) < 0.003 % (0.000-0.010)
[2025-07-21 18:35] LABS: BARBITURATES URINE NEGATIVE (NEGATIVE); BENZODIAZEPINES URINE NEGATIVE (NEGATIVE); CANNABINOIDS URINE NEGATIVE (NEGATIVE); COCAINE METABOLITE URINE NEGATIVE (NEGATIVE); METHADONE URINE NEGATIVE (NEGATIVE); OPIATES URINE NEGATIVE (NEGATIVE); PHENCYCLIDINE URINE NEGATIVE (NEGATIVE)
[2025-07-21 18:36] LABS: AMPHETAMINES LEVEL URINE POSITIVE (NEGATIVE)
[2025-07-21 21:25] LABS: IRON (FE) 18 UG/DL (65-175); PERCENT SATURATION 4.5 % (19.7-50.0)
[2025-07-21 21:27] LABS: VITAMIN B12 LEVEL 261 PG/ML (211-911)
[2025-07-22] MEDS ORDERED: MAALOX 30 ML SUSP *UDC PO PRN (09:20)
[2025-07-22] MEDS ORDERED: ACETAMINOPHEN 325 MG TAB PO PRN (09:20)
[2025-07-22] MEDS ORDERED: HOME MED LIST COMPLETE! XX SCH (09:20)
[2025-07-22] MEDS ORDERED: OLANZapine 5 MG TAB PO PRN (09:20)
[2025-07-22] MEDS ORDERED: MOM 30 ML SUSPENSION UDC PO PRN (09:20)
[2025-07-22] MEDS ORDERED: traZODone 50 MG TAB PO PRN (09:20)
[2025-07-22 11:13] VITALS: BP 135/89; TEMP 96.8; O2SAT 100
[2025-07-22] MEDS: NICOTINE 14 MG/24 HR TRANSDERMAL TD SCH (12:14)
[2025-07-22] MEDS: LORazepam 1 MG TAB PO PRN (12:36)
[2025-07-22] MEDS: HALOPERIDOL 5 MG TAB PO PRN (12:36)
[2025-07-23 06:36] VITALS: BP 127/89; TEMP 97.8; O2SAT 100
== END 2025-07-23 11:37 | disposition home or self-care (01) | DRG 776 ==
LOC: M ED 17:04 → M ED INP 07-22 09:17 → M PSY 07-22 11:05
PROVIDERS: ADMIT Internal Medicine; ATTEND Internal Medicine
DX: F15.951 Other stimulant use, unspecified with stimulant-induced psychotic disorder with hallucinations (principal); Z88.0 Allergy status to penicillin; Z88.6 Allergy status to analgesic agent; Z88.8 Allergy status to other drugs, medicaments and biological substances; K21.9 Gastro-esophageal reflux disease without esophagitis; K22.70 Barrett's esophagus without dysplasia; J45.909 Unspecified asthma, uncomplicated

== ENCOUNTER 2025-07-27 07:51 | Emergency (ER) | payer OTHER ==
[~2025-07-27] VITALS: Ht 167.6 cm; Wt 68.2 kg
[2025-07-27] MEDS: KETOROLAC 30 MG/ML 1 ML VIAL IM ONE (09:29)
[2025-07-27 10:41] LABS: BASO # 0.0 10^3/uL (0.0-0.2); BASO % 0.4 % (0.0-1.0); EOS # 0.1 10^3/uL (0.0-0.5); EOS % 1.2 % (0.0-3.0); LYMPH # 0.7 10^3/uL (1.5-5.0); LYMPH % 7.4 % (24.0-44.0); MONO # 0.6 10^3/uL (0.0-0.8); MONO % 5.9 % (2.0-8.0); NEUTROPHILS # 7.9 10^3/uL (1.5-8.5); NEUTROPHILS % 84.9 % (36.0-66.0); PLATELET COUNT, AUTOMATED 242 10^3/uL (150-450)
[2025-07-27 10:46] LABS: ERYTHROCYTE SEDIMENTATION RATE 31 mm/hr (0-20)
[2025-07-27 11:03] VITALS: BP 155/93; TEMP 97.6; O2SAT 99
[2025-07-27] MEDS ORDERED: KETO-204 PO (11:06)
[2025-07-27 12:00] LABS: C REACTIVE PROTEIN QUANTITATIV < 0.50 MG/DL (<1.0)
[2025-07-27 12:01] LABS: ALT/SGPT 22 U/L (7.0-40); AST/SGOT 21 U/L (<34); CALCIUM LEVEL 8.6 MG/DL (8.5-10.1); CARBON DIOXIDE LEVEL 25 MMOL/L (20-31); CHLORIDE LEVEL 102 MMOL/L (98-107); CREATININE FOR GFR 0.75 MG/DL (0.70-1.30); GLOMERULAR FILTRATION RATE > 90.0 (>56); POTASSIUM SERUM 3.9 MMOL/L (3.5-5.1); SODIUM LEVEL 138 MMOL/L (136-145)
== END 2025-07-27 11:20 | disposition home or self-care (01) ==
LOC: M ED 07:51
DX: M25.512 Pain in left shoulder (principal); M19.012 Primary osteoarthritis, left shoulder; F15.10 Other stimulant abuse, uncomplicated; Z88.0 Allergy status to penicillin; Z88.6 Allergy status to analgesic agent; Z79.899 Other long term (current) drug therapy
CPT/HCPCS: 73030; 80053; 85025; 85652; 86140; 96372; 99284; J1885

== ENCOUNTER 2025-07-29 22:44 | Emergency (ER) | payer OTHER ==
[~2025-07-29] VITALS: Ht 167.6 cm; Wt 68.2 kg
[2025-07-29 22:48] VITALS: BP 146/85; TEMP 99.6; O2SAT 100
== END 2025-07-30 03:06 | disposition left against medical advice (07) ==
LOC: M ED 22:44
DX: Z53.21 Procedure and treatment not carried out due to patient leaving prior to being seen by health care provider (principal)

== ENCOUNTER 2025-08-27 09:44 | Observation (INO) | payer OTHER ==
[~2025-08-27] VITALS: Ht 167.6 cm; Wt 65.0 kg
[~2025-08-27 09:44] MED LIST changes: +ACET-683 PO; +IBUP200C28 PO; +META28.32 PO
[2025-08-27 14:22] LABS: APPEARANCE, URINE CLEAR (CLEAR); BACTERIA, URINE AUTO NEGATIVE (NEGATIVE); BILIRUBIN, URINE AUTO NEGATIVE (NEGATIVE); BLOOD, URINE BLOOD NEGATIVE (NEGATIVE); GLUCOSE, URINE (UA) AUTO NEGATIVE (NEGATIVE); KETONE, URINE AUTO NEGATIVE (NEGATIVE); LEUKOCYTE ESTERASE, URINE AUTO NEGATIVE (NEGATIVE); MUCUS, URINE SMALL (NEGATIVE); NITRITE, URINE AUTO NEGATIVE (NEGATIVE); PROTEIN, URINE AUTO NEGATIVE (NEGATIVE); RBC, URINE AUTO 1 /HPF (0-3); SPECIFIC GRAVITY URINE AUTO 1.013 (1.002-1.035); SQUAMOUS EPITHELIAL CELL UR AU 0 /HPF (0-6); UROBILINOGEN, URINE AUTO 0.2 mg/dL (0.0-2.0); WBC, URINE AUTO 0 /HPF (0-3)
[2025-08-27 14:46] LABS: BASO # 0.0 10^3/uL (0.0-0.2); BASO % 0.4 % (0.0-1.0); EOS # 0.3 10^3/uL (0.0-0.5); EOS % 5.0 % (0.0-3.0); LYMPH # 1.5 10^3/uL (1.5-5.0); LYMPH % 29.4 % (24.0-44.0); MONO # 0.4 10^3/uL (0.0-0.8); MONO % 7.6 % (2.0-8.0); NEUTROPHILS # 2.9 10^3/uL (1.5-8.5); NEUTROPHILS % 57.4 % (36.0-66.0); PLATELET COUNT, AUTOMATED 421 10^3/uL (150-450)
[2025-08-27 15:09] LABS: ALT/SGPT 14 U/L (7.0-40); AST/SGOT 15 U/L (<34); CALCIUM LEVEL 8.9 MG/DL (8.5-10.1); CARBON DIOXIDE LEVEL 28 MMOL/L (20-31); CHLORIDE LEVEL 98 MMOL/L (98-107); CREATININE FOR GFR 0.53 MG/DL (0.70-1.30); GLOMERULAR FILTRATION RATE > 90.0 (>56); POTASSIUM SERUM 4.1 MMOL/L (3.5-5.1); SODIUM LEVEL 138 MMOL/L (136-145)
[2025-08-27 15:24] LABS: BARBITURATES URINE NEGATIVE (NEGATIVE); BENZODIAZEPINES URINE NEGATIVE (NEGATIVE); CANNABINOIDS URINE NEGATIVE (NEGATIVE); COCAINE METABOLITE URINE NEGATIVE (NEGATIVE); METHADONE URINE NEGATIVE (NEGATIVE); OPIATES URINE NEGATIVE (NEGATIVE); PHENCYCLIDINE URINE NEGATIVE (NEGATIVE)
[2025-08-27 15:25] LABS: AMPHETAMINES LEVEL URINE POSITIVE (NEGATIVE)
[2025-08-27] MEDS ORDERED: ISOVUE-370 76% 100 ML VIAL As Ordered ONE (16:35)
[2025-08-27] MEDS ORDERED: OMEP40CA5 PO (18:38)
[2025-08-27] MEDS ORDERED: HOME MED LIST COMPLETE! XX SCH (18:40)
[2025-08-27] MEDS: VANCOMYCIN HCL 1,250 MG, VIAL MATE ADAPTER 1 EACH in NS 250 ML IV ONE (19:12)
[2025-08-27 20:18] LABS: C REACTIVE PROTEIN QUANTITATIV 4.78 MG/DL (<1.0)
[2025-08-27 20:20] LABS: LDH LACTATE DEHYDROGENASE 165.0 U/L (120-246)
[2025-08-27 20:21] LABS: IRON (FE) 16.0 UG/DL (65-175); PERCENT SATURATION 5.1 % (19.7-50.0)
[2025-08-27 20:25] LABS: VITAMIN B12 LEVEL 317.0 PG/ML (211-911)
[2025-08-27 20:47] LABS: HIV 1&2 SCREEN NEGATIVE (NEGATIVE)
[2025-08-27 20:51] VITALS: BP 147/89; TEMP 97.9; O2SAT 100
[2025-08-27 20:55] LABS: HEPATITIS C VIRUS ABY INDEX 0.74 INDEX (<0.8)
[2025-08-28] MEDS: VANCOMYCIN HCL 1,000 MG, VIAL MATE ADAPTER 1 EACH in NS 250 ML IV SCH (04:44)
[2025-08-28 05:16] VITALS: BP 140/80; TEMP 97.5; O2SAT 100
[2025-08-28 06:32] LABS: PLATELET COUNT, AUTOMATED 405 10^3/uL (150-450)
[2025-08-28 06:57] LABS: CALCIUM LEVEL 8.6 MG/DL (8.5-10.1); CARBON DIOXIDE LEVEL 28 MMOL/L (20-31); CHLORIDE LEVEL 100 MMOL/L (98-107); CREATININE FOR GFR 0.58 MG/DL (0.70-1.30); GLOMERULAR FILTRATION RATE > 90.0 (>56); POTASSIUM SERUM 4.4 MMOL/L (3.5-5.1); SODIUM LEVEL 139 MMOL/L (136-145)
[2025-08-28 12:00] VITALS: BP 138/90; TEMP 98.1; O2SAT 96
[2025-08-28] MEDS: MIRALAX *UNIT DOSE* 17 GM PACKET PO SCH (12:10)
[2025-08-28] MEDS ORDERED: FERR325T3 PO (12:46)
== END 2025-08-28 14:00 | disposition home or self-care (01) ==
LOC: M ED 09:44 → EEVIPCON 09:45 → M ED INP 09:45 → M MSPAV 20:58
PROVIDERS: ADMIT Internal Medicine; ATTEND Internal Medicine
DX: D64.9 Anemia, unspecified (principal); L03.114 Cellulitis of left upper limb; R60.9 Edema, unspecified; K22.70 Barrett's esophagus without dysplasia; K40.90 Unilateral inguinal hernia, without obstruction or gangrene, not specified as recurrent; Z79.899 Other long term (current) drug therapy; Z88.0 Allergy status to penicillin; Z88.8 Allergy status to other drugs, medicaments and biological substances
CPT/HCPCS: 36415; 71045; 74177; 80048; 80074; 80076; 80202; 80307; 81001; 82607; 82728; 82746; 83010; 83550; 83605; 83615; 83880; 84145; 84238; 85025; 85027; 85046; 86140; 87040; 87389; 87641; 93970; 96365; 96366; 99285; J3373; J3374; Q9967

== ENCOUNTER 2025-08-28 14:00 | Outpatient (CLI) | payer OTHER ==
[~2025-08-28 14:00] MED LIST changes: +FERR325T3 PO; +OMEP40CA5 PO
[2025-08-28] MEDS: DALBAVANCIN 1,500 MG in D5W 250 ML IV ONE (14:07)
== END 2025-08-28 14:43 ==
LOC: M OPCLI4PV 14:00
PROVIDERS: ATTEND Internal Medicine
DX: L03.114 Cellulitis of left upper limb (principal); D64.9 Anemia, unspecified; Z88.0 Allergy status to penicillin; Z88.8 Allergy status to other drugs, medicaments and biological substances
CPT/HCPCS: 96365; J0875

== ENCOUNTER 2025-08-30 04:59 | Emergency (ER) | payer OTHER ==
[~2025-08-30] VITALS: Ht 170.2 cm; Wt 63.6 kg
[2025-08-30 05:09] VITALS: TEMP 97.8
[2025-08-30 06:45] VITALS: BP 149/96; O2SAT 100
[2025-08-30] MEDS ORDERED: COLA100C5 PO (08:57)
== END 2025-08-30 10:06 | disposition home or self-care (01) ==
LOC: M ED 04:59
DX: K40.30 Unilateral inguinal hernia, with obstruction, without gangrene, not specified as recurrent (principal); F17.200 Nicotine dependence, unspecified, uncomplicated; F19.10 Other psychoactive substance abuse, uncomplicated; Z88.0 Allergy status to penicillin; Z88.6 Allergy status to analgesic agent; Z79.899 Other long term (current) drug therapy

== ENCOUNTER 2025-09-02 22:54 | Emergency (ER) | payer OTHER ==
[~2025-09-02] VITALS: Ht 167.6 cm; Wt 65.5 kg
[2025-09-03 00:59] VITALS: BP 145/76; TEMP 99.1; O2SAT 99
== END 2025-09-03 01:52 | disposition left against medical advice (07) ==
LOC: M ED 22:54
DX: Z53.21 Procedure and treatment not carried out due to patient leaving prior to being seen by health care provider (principal)

== ENCOUNTER 2025-09-17 18:45 | Emergency (ER) | payer OTHER ==
[~2025-09-17] VITALS: Ht 154.9 cm; Wt 62.0 kg
[2025-09-17 21:30] LABS: PLATELET COUNT, AUTOMATED 543 10^3/uL (150-450)
[2025-09-17] MEDS ORDERED: HOME MED LIST COMPLETE! XX SCH (21:40)
[2025-09-17] MEDS: OLANZapine INTRAMUSCULAR 10MG VIAL IM ONE (21:52)
[2025-09-17 22:18] LABS: ETHYL ALCOHOL (ETHANOL) < 0.003 % (0.000-0.010)
[2025-09-17 22:20] LABS: SALICYLATE LEVEL < 3.0 MG/DL (<30)
[2025-09-17 22:32] LABS: ALT/SGPT 10 U/L (7.0-40); AST/SGOT 14 U/L (<34); CALCIUM LEVEL 9.5 MG/DL (8.5-10.1); CARBON DIOXIDE LEVEL 26 MMOL/L (20-31); CHLORIDE LEVEL 102 MMOL/L (98-107); CREATININE FOR GFR 0.60 MG/DL (0.70-1.30); GLOMERULAR FILTRATION RATE > 90.0 (>56); POTASSIUM SERUM 4.0 MMOL/L (3.5-5.1); SODIUM LEVEL 138 MMOL/L (136-145)
[2025-09-18 00:43] LABS: BARBITURATES URINE NEGATIVE (NEGATIVE); BENZODIAZEPINES URINE NEGATIVE (NEGATIVE); METHADONE URINE NEGATIVE (NEGATIVE); OPIATES URINE NEGATIVE (NEGATIVE); PHENCYCLIDINE URINE NEGATIVE (NEGATIVE)
[2025-09-18 00:51] LABS: AMPHETAMINES LEVEL URINE POSITIVE (NEGATIVE); CANNABINOIDS URINE POSITIVE (NEGATIVE); COCAINE METABOLITE URINE POSITIVE (NEGATIVE)
[2025-09-18 13:45] VITALS: BP 143/88; TEMP 97.8; O2SAT 98
== END 2025-09-18 14:30 | disposition home or self-care (01) ==
LOC: M ED 18:45
DX: F14.120 Cocaine abuse with intoxication, uncomplicated (principal); Z88.0 Allergy status to penicillin; Z88.6 Allergy status to analgesic agent
CPT/HCPCS: 80048; 80076; 80143; 80307; 82077; 84443; 85027; 96372; 99284; J2359

== ENCOUNTER 2025-09-23 01:29 | Inpatient (IN) | payer OTHER ==
[~2025-09-23] VITALS: Ht 167.6 cm; Wt 63.4 kg
[2025-09-23] MEDS: KETOROLAC 30 MG/ML 1 ML VIAL IV ONE (04:59)
[2025-09-23] MEDS: ONDANSETRON 4MG/2ML VIAL IV ONE (04:59)
[2025-09-23 05:20] LABS: BASO # 0.0 10^3/uL (0.0-0.2); BASO % 0.5 % (0.0-1.0); EOS # 0.2 10^3/uL (0.0-0.5); EOS % 2.5 % (0.0-3.0); LYMPH # 2.1 10^3/uL (1.5-5.0); LYMPH % 26.5 % (24.0-44.0); MONO # 0.5 10^3/uL (0.0-0.8); MONO % 5.6 % (2.0-8.0); NEUTROPHILS # 5.2 10^3/uL (1.5-8.5); NEUTROPHILS % 64.8 % (36.0-66.0); PLATELET COUNT, AUTOMATED 518 10^3/uL (150-450)
[2025-09-23] MEDS: GASTROGRAFIN SOLUTION 30ML PO SCH (05:20)
[2025-09-23 05:45] LABS: ALT/SGPT 11 U/L (7.0-40); AST/SGOT 15 U/L (<34); CALCIUM LEVEL 9.3 MG/DL (8.5-10.1); CARBON DIOXIDE LEVEL 28 MMOL/L (20-31); CHLORIDE LEVEL 100 MMOL/L (98-107); CREATININE FOR GFR 0.60 MG/DL (0.70-1.30); GLOMERULAR FILTRATION RATE > 90.0 (>56); POTASSIUM SERUM 4.4 MMOL/L (3.5-5.1); SODIUM LEVEL 137 MMOL/L (136-145)
[2025-09-23] MEDS ORDERED: ISOVUE-370 76% 100 ML VIAL As Ordered ONE (06:42)
[2025-09-23 08:08] LABS: C REACTIVE PROTEIN QUANTITATIV 2.88 MG/DL (<1.0)
[2025-09-23] MEDS ORDERED: HOME MED LIST COMPLETE! XX SCH (09:15)
[2025-09-23] MEDS ORDERED: PROHANCE 279.3MG/ML 15ML VIAL As Ordered ONE (11:01)
[2025-09-23] MEDS: cefTRIAXone SOD 2 GM in DEXTROSE 5% (D5W) ADV/MINI-BAG 50 ML IV ONE (12:52)
[2025-09-23] MEDS: VANCOMYCIN HCL 1,250 MG, VIAL MATE ADAPTER 1 EACH in NS 250 ML IV ONE (13:30)
[2025-09-23 16:19] LABS: KETONE, URINE AUTO RFX NEGATIVE (NEGATIVE); LEUKOCYTE ESTERASE UR AUTO RFX NEGATIVE (NEGATIVE); MUCUS, URINE RFX SMALL (NEGATIVE); NITRITE, URINE AUTO RFX NEGATIVE (NEGATIVE); RBC, URINE AUTO RFX 6 /HPF (0-3); SQUAM EPITHELIAL CELL UR AURFX 0 /HPF (0-6); WBC, URINE AUTO RFX 2 /HPF (0-3)
[2025-09-23 17:35] LABS: BARBITURATES URINE NEGATIVE (NEGATIVE); BENZODIAZEPINES URINE NEGATIVE (NEGATIVE)
[2025-09-23 17:36] LABS: CANNABINOIDS URINE NEGATIVE (NEGATIVE); COCAINE METABOLITE URINE NEGATIVE (NEGATIVE); METHADONE URINE NEGATIVE (NEGATIVE); OPIATES URINE NEGATIVE (NEGATIVE); PHENCYCLIDINE URINE NEGATIVE (NEGATIVE)
[2025-09-23 17:43] LABS: AMPHETAMINES LEVEL URINE POSITIVE (NEGATIVE)
[2025-09-23 20:25] VITALS: BP 111/78; TEMP 97.9; O2SAT 98
[2025-09-23] MEDS: MIRALAX *UNIT DOSE* 17 GM PACKET PO SCH (21:14)
[2025-09-23] MEDS: SENNA 8.6 MG TAB PO SCH (21:14)
[2025-09-23] MEDS: BUPRENORPHINE/NALOXONE 2-0.5MG SUBLINGUAL TABLET(SUBOXONE) SL SCH (21:14)
[2025-09-23] MEDS: ACETAMINOPHEN 325 MG TAB PO SCH (21:15)
[2025-09-23] MEDS: HEPARIN SOD 5000 UNITS/ML 1 ML VIAL/SYRINGE SC SCH (21:16)
[2025-09-23] MEDS: QUEtiapine FUMARATE 12.5 MG HALF-TAB PO SCH (21:21)
[2025-09-23] MEDS: VANCOMYCIN HCL 1,000 MG, VIAL MATE ADAPTER 1 EACH in NS 250 ML IV SCH (21:21)
[2025-09-23] MEDS ORDERED: PIPERACILLIN/TAZOBACTAM SOD 4.5 GM in DEXTROSE 5% (D5W) ADV/MINI-BAG 50 ML IV SCH (22:00)
[2025-09-23] MEDS: CEFEPIME HCL 2 GM in DEXTROSE 5% (D5W) ADV/MINI-BAG 50 ML IV SCH (22:46)
[2025-09-23] MEDS: LORazepam 0.5 MG TAB PO PRN (23:55)
[2025-09-24] VITALS (9 sets, daily range): BP systolic 100–132; BP diastolic 72–85; TEMP 97.5–98.1; O2SAT 91–100
[2025-09-24] MEDS: KETOROLAC 30 MG/ML 1 ML VIAL IV PRN (00:18)
[2025-09-24 07:12] LABS: PLATELET COUNT, AUTOMATED 412 10^3/uL (150-450)
[2025-09-24] MEDS ORDERED: traZODone 25MG PER 1/2 TABLET PO PRN (07:15)
[2025-09-24 07:42] LABS: CALCIUM LEVEL 8.5 MG/DL (8.5-10.1); CARBON DIOXIDE LEVEL 30 MMOL/L (20-31); CHLORIDE LEVEL 100 MMOL/L (98-107); CREATININE FOR GFR 0.60 MG/DL (0.70-1.30); GLOMERULAR FILTRATION RATE > 90.0 (>56); POTASSIUM SERUM 4.4 MMOL/L (3.5-5.1); SODIUM LEVEL 135 MMOL/L (136-145)
[2025-09-24] MEDS: KETOROLAC 30 MG/ML 1 ML VIAL IV SCH (08:41)
[2025-09-24] MEDS: PANTOPRAZOLE 40MG TAB PO SCH (08:42)
[2025-09-24] MEDS: LIDOCAINE 1% MDV 20 ML VIAL SC SCH (10:32)
[2025-09-24] MEDS: MIDAZOLAM INJ 2 MG/2 ML VIAL IV PRN (10:33)
[2025-09-24] MEDS: ISOVUE-300 61% 100 ML VIAL IV STA (10:33)
[2025-09-24] MEDS: SODIUM CHLORIDE 0.9% 1000 ML XX SCH (10:35)
[2025-09-24] MEDS: NS (Normal Saline) 0.9% 1,000 ML IV SCH (10:36)
[2025-09-24] MEDS: VANCOMYCIN HCL 750 MG, VIAL MATE ADAPTER 1 EACH in NS 250 ML IV SCH (12:28)
[2025-09-24] MEDS: SENNOSIDES/DOCUSATE SODIUM 8.6 MG/50MG TAB PO SCH (21:50)
[2025-09-25 05:18] VITALS: BP 122/82; TEMP 98.2; O2SAT 95
[2025-09-25 06:41] LABS: PLATELET COUNT, AUTOMATED 422 10^3/uL (150-450)
[2025-09-25 07:04] LABS: CALCIUM LEVEL 8.3 MG/DL (8.5-10.1); CARBON DIOXIDE LEVEL 28 MMOL/L (20-31); CHLORIDE LEVEL 100 MMOL/L (98-107); CREATININE FOR GFR 0.55 MG/DL (0.70-1.30); GLOMERULAR FILTRATION RATE > 90.0 (>56); POTASSIUM SERUM 4.2 MMOL/L (3.5-5.1); SODIUM LEVEL 135 MMOL/L (136-145)
[2025-09-25 10:00] VITALS: BP 129/73; TEMP 98.5; O2SAT 95
[2025-09-25 14:00] VITALS: BP 142/61; TEMP 99.3; O2SAT 97
[2025-09-25 18:00] VITALS: BP 148/83; TEMP 98.1; O2SAT 99
[2025-09-25] MEDS: VANCOMYCIN HCL 1,000 MG, VIAL MATE ADAPTER 1 EACH in NS 250 ML IV SCH (20:39)
[2025-09-25 22:22] VITALS: BP 138/85; TEMP 97.6; O2SAT 87
[2025-09-26 05:10] VITALS: BP 117/56; TEMP 98.2; O2SAT 99
[2025-09-26 06:54] LABS: PLATELET COUNT, AUTOMATED 377 10^3/uL (150-450)
[2025-09-26 07:21] LABS: CALCIUM LEVEL 8.4 MG/DL (8.5-10.1); CARBON DIOXIDE LEVEL 28 MMOL/L (20-31); CHLORIDE LEVEL 103 MMOL/L (98-107); CREATININE FOR GFR 0.54 MG/DL (0.70-1.30); GLOMERULAR FILTRATION RATE > 90.0 (>56); POTASSIUM SERUM 4.5 MMOL/L (3.5-5.1); SODIUM LEVEL 137 MMOL/L (136-145)
[2025-09-26 09:34] VITALS: BP 120/66; TEMP 99; O2SAT 100
[2025-09-26 12:00] VITALS: BP 120/66; TEMP 99; O2SAT 100
[2025-09-26 15:11] LABS: CPK CREATINE PHOSPHOKINASE < 15 U/L (46-171)
[2025-09-26 15:12] LABS: C REACTIVE PROTEIN QUANTITATIV 7.79 MG/DL (<1.0)
[2025-09-26] MEDS: DAPTOmycin 650 MG in NS 50 ML IV SCH (17:16)
[2025-09-26 20:00] VITALS: BP 134/77; TEMP 98.9; O2SAT 99
[2025-09-27] VITALS: BP 129/60; TEMP 98.9; O2SAT 97
[2025-09-27 04:00] VITALS: BP 134/72; TEMP 99.5; O2SAT 97
[2025-09-27 09:03] VITALS: BP 128/73; TEMP 100; O2SAT 97
[2025-09-27 09:16] LABS: PLATELET COUNT, AUTOMATED 394 10^3/uL (150-450)
[2025-09-27 09:59] LABS: CALCIUM LEVEL 8.5 MG/DL (8.5-10.1); CARBON DIOXIDE LEVEL 30 MMOL/L (20-31); CHLORIDE LEVEL 103 MMOL/L (98-107); CREATININE FOR GFR 0.48 MG/DL (0.70-1.30); GLOMERULAR FILTRATION RATE > 90.0 (>56); POTASSIUM SERUM 4.4 MMOL/L (3.5-5.1); SODIUM LEVEL 140 MMOL/L (136-145)
[2025-09-27 14:00] VITALS: BP 140/87; TEMP 98.7; O2SAT 99
[2025-09-27 19:47] VITALS: BP 132/80; TEMP 98.3; O2SAT 97
[2025-09-28 06:00] VITALS: BP 132/80; TEMP 98.8; O2SAT 97
[2025-09-28 07:09] LABS: PLATELET COUNT, AUTOMATED 406 10^3/uL (150-450)
[2025-09-28 07:33] LABS: CALCIUM LEVEL 8.2 MG/DL (8.5-10.1); CARBON DIOXIDE LEVEL 29 MMOL/L (20-31); CHLORIDE LEVEL 101 MMOL/L (98-107); CREATININE FOR GFR 0.46 MG/DL (0.70-1.30); GLOMERULAR FILTRATION RATE > 90.0 (>56); POTASSIUM SERUM 4.5 MMOL/L (3.5-5.1); SODIUM LEVEL 138 MMOL/L (136-145)
[2025-09-28 14:48] VITALS: BP 135/86; TEMP 98.2; O2SAT 94
[2025-09-29 05:52] VITALS: BP 144/89; TEMP 98.3; O2SAT 98
[2025-09-29 14:54] VITALS: BP 140/81; TEMP 99.7; O2SAT 100
[2025-09-29 20:30] VITALS: BP 155/88; TEMP 100.2; O2SAT 99
[2025-09-29] MEDS: CYCLOBENZAPRINE 10 MG TABLET PO PRN (20:54)
[2025-09-30 06:09] VITALS: BP 136/88; TEMP 98.8; O2SAT 98
[2025-09-30 06:58] LABS: PLATELET COUNT, AUTOMATED 364 10^3/uL (150-450)
[2025-09-30 07:24] LABS: CALCIUM LEVEL 8.6 MG/DL (8.5-10.1); CARBON DIOXIDE LEVEL 28 MMOL/L (20-31); CHLORIDE LEVEL 102 MMOL/L (98-107); CREATININE FOR GFR 0.50 MG/DL (0.70-1.30); GLOMERULAR FILTRATION RATE > 90.0 (>56); POTASSIUM SERUM 4.1 MMOL/L (3.5-5.1); SODIUM LEVEL 138 MMOL/L (136-145)
[2025-09-30 08:00] VITALS: BP 148/84; TEMP 98.3; O2SAT 99
[2025-09-30 10:03] VITALS: O2SAT 99
[2025-09-30] MEDS ORDERED: LINE1TAB PO (17:08)
[2025-09-30] MEDS ORDERED: ACET-897 PO (17:08)
[2025-09-30] MEDS ORDERED: QUET1TAB17 PO (17:08)
[2025-09-30 20:45] LABS: C REACTIVE PROTEIN QUANTITATIV 2.29 MG/DL (<1.0)
[2025-10-01] MEDS ORDERED: MED REC COMMENT (17:40)
== END 2025-09-30 17:30 | disposition left against medical advice (07) | DRG 344 ==
LOC: M ED 01:29 → EEVIPCON 18:24 → M ED INP 18:24 → M MS5PR 20:20
PROVIDERS: ADMIT Student in an Organized Health Care Education/Training Program; ATTEND Internal Medicine Nephrology
PROC: 0K9N3ZZ Drainage of Right Hip Muscle, Percutaneous Approach (ICD-10-PCS; principal; 2025-09-24 15:00)
DX: M46.26 Osteomyelitis of vertebra, lumbar region (principal); K68.12 Psoas muscle abscess; D64.9 Anemia, unspecified; F15.10 Other stimulant abuse, uncomplicated; K22.70 Barrett's esophagus without dysplasia; L29.9 Pruritus, unspecified; M46.46 Discitis, unspecified, lumbar region; F39 Unspecified mood [affective] disorder; K59.00 Constipation, unspecified; K40.90 Unilateral inguinal hernia, without obstruction or gangrene, not specified as recurrent; Z88.0 Allergy status to penicillin; Z88.6 Allergy status to analgesic agent; J45.909 Unspecified asthma, uncomplicated; F41.9 Anxiety disorder, unspecified; F12.90 Cannabis use, unspecified, uncomplicated

== ENCOUNTER 2025-09-30 23:52 | Inpatient (IN) | payer OTHER ==
[~2025-09-30] VITALS: Ht 167.6 cm; Wt 68.1 kg
[~2025-09-30 23:52] MED LIST changes: +ACET-897 PO; +LINE1TAB PO; +QUET1TAB17 PO
[2025-10-01] MEDS: ACETAMINOPHEN 325 MG TAB PO ONE (04:32)
[2025-10-01] MEDS: traMADol 50 MG TAB PO ONE (04:33)
[2025-10-01 11:33] LABS: PLATELET COUNT, AUTOMATED 398 10^3/uL (150-450)
[2025-10-01 11:59] LABS: CANNABINOIDS URINE NEGATIVE (NEGATIVE); METHADONE URINE NEGATIVE (NEGATIVE); OPIATES URINE NEGATIVE (NEGATIVE); PHENCYCLIDINE URINE NEGATIVE (NEGATIVE)
[2025-10-01 12:00] LABS: BARBITURATES URINE NEGATIVE (NEGATIVE); BENZODIAZEPINES URINE NEGATIVE (NEGATIVE); COCAINE METABOLITE URINE NEGATIVE (NEGATIVE)
[2025-10-01 12:02] LABS: ETHYL ALCOHOL (ETHANOL) 0.004 % (0.000-0.010)
[2025-10-01 12:02] LABS: AMPHETAMINES LEVEL URINE POSITIVE (NEGATIVE)
[2025-10-01 12:04] LABS: ALT/SGPT 24 U/L (7.0-40); AST/SGOT 24 U/L (<34); CALCIUM LEVEL 9.0 MG/DL (8.5-10.1); CARBON DIOXIDE LEVEL 28 MMOL/L (20-31); CHLORIDE LEVEL 99 MMOL/L (98-107); CREATININE FOR GFR 0.52 MG/DL (0.70-1.30); GLOMERULAR FILTRATION RATE > 90.0 (>56); POTASSIUM SERUM 4.1 MMOL/L (3.5-5.1); SALICYLATE LEVEL < 3.0 MG/DL (<30); SODIUM LEVEL 136 MMOL/L (136-145)
[2025-10-01 17:35] LABS: C REACTIVE PROTEIN QUANTITATIV 2.67 MG/DL (<1.0)
[2025-10-01] MEDS ORDERED: MED REC COMMENT (17:40)
[2025-10-01] MEDS ORDERED: HOME MED LIST COMPLETE! XX SCH (17:45)
[2025-10-01] MEDS: ACETAMINOPHEN 325 MG TAB PO SCH (18:59)
[2025-10-01] MEDS: KETOROLAC 30 MG/ML 1 ML VIAL IV SCH (20:30)
[2025-10-01] MEDS: CYCLOBENZAPRINE 5 MG TABLET PO SCH (21:39)
[2025-10-01 21:48] VITALS: BP 129/85; TEMP 98.8; O2SAT 99
[2025-10-02] MEDS: DAPTOmycin 750 MG in NS 50 ML IV SCH (02:06)
[2025-10-02 04:37] VITALS: BP 125/80; TEMP 96.8; O2SAT 98
[2025-10-02 07:34] LABS: PLATELET COUNT, AUTOMATED 585 10^3/uL (150-450)
[2025-10-02 07:40] LABS: CALCIUM LEVEL 9.9 MG/DL (8.5-10.1); CARBON DIOXIDE LEVEL 28 MMOL/L (20-31); CHLORIDE LEVEL 98 MMOL/L (98-107); CREATININE FOR GFR 0.69 MG/DL (0.70-1.30); GLOMERULAR FILTRATION RATE > 90.0 (>56); POTASSIUM SERUM 4.8 MMOL/L (3.5-5.1); SODIUM LEVEL 138 MMOL/L (136-145)
[2025-10-02] MEDS: MIRALAX *UNIT DOSE* 17 GM PACKET PO SCH (09:50)
[2025-10-02] MEDS: ENOXAPARIN 40 MG/0.4 ML SYRINGE (J1650 PER 10MG) SC SCH (09:51)
[2025-10-02] MEDS: PANTOPRAZOLE 40MG TAB PO SCH (09:52)
[2025-10-02] MEDS: KETOROLAC 30 MG/ML 1 ML VIAL IV SCH (11:30)
[2025-10-02 12:22] VITALS: BP 130/61; TEMP 98.3; O2SAT 99
[2025-10-02 21:31] VITALS: BP 118/84; TEMP 97.5; O2SAT 98
[2025-10-03 04:44] VITALS: BP 119/77; TEMP 98.1; O2SAT 99
[2025-10-03 06:50] LABS: PLATELET COUNT, AUTOMATED 400 10^3/uL (150-450)
[2025-10-03 06:57] LABS: CALCIUM LEVEL 8.6 MG/DL (8.5-10.1); CARBON DIOXIDE LEVEL 27 MMOL/L (20-31); CHLORIDE LEVEL 102 MMOL/L (98-107); CREATININE FOR GFR 0.77 MG/DL (0.70-1.30); GLOMERULAR FILTRATION RATE > 90.0 (>56); POTASSIUM SERUM 4.6 MMOL/L (3.5-5.1); SODIUM LEVEL 138 MMOL/L (136-145)
[2025-10-03 11:35] VITALS: BP 108/55; TEMP 100.2; O2SAT 98
[2025-10-03 12:45] VITALS: TEMP 98.4
[2025-10-03 18:14] LABS: IRON (FE) 16 UG/DL (65-175); PERCENT SATURATION 5.0 % (19.7-50.0)
[2025-10-03 18:17] LABS: VITAMIN B12 LEVEL 214 PG/ML (211-911)
[2025-10-03] MEDS: DAPTOmycin 750 MG in NS 50 ML IV SCH (20:30)
[2025-10-03 20:50] VITALS: BP 118/73; TEMP 98.1; O2SAT 98
[2025-10-04 04:20] VITALS: BP 125/69; TEMP 98.5; O2SAT 99
[2025-10-04 06:28] LABS: PLATELET COUNT, AUTOMATED 393 10^3/uL (150-450)
[2025-10-04 06:50] LABS: CALCIUM LEVEL 8.5 MG/DL (8.5-10.1); CARBON DIOXIDE LEVEL 28 MMOL/L (20-31); CHLORIDE LEVEL 104 MMOL/L (98-107); CREATININE FOR GFR 0.68 MG/DL (0.70-1.30); GLOMERULAR FILTRATION RATE > 90.0 (>56); POTASSIUM SERUM 4.7 MMOL/L (3.5-5.1); SODIUM LEVEL 139 MMOL/L (136-145)
[2025-10-04 12:00] VITALS: BP 136/73; TEMP 98.9; O2SAT 98
[2025-10-04] MEDS: FERROUS GLUCONATE 324 MG TAB PO SCH (13:26)
[2025-10-04] MEDS: CYANOCOBALAMIN 500 MCG TAB PO SCH (13:26)
[2025-10-04] MEDS: KETOROLAC 30 MG/ML 1 ML VIAL IV SCH (18:22)
[2025-10-04 20:00] VITALS: BP 126/66; TEMP 99.6; O2SAT 94
[2025-10-05 04:02] VITALS: BP 135/82; TEMP 99.4; O2SAT 98
[2025-10-05 06:11] LABS: PLATELET COUNT, AUTOMATED 381 10^3/uL (150-450)
[2025-10-05 06:40] LABS: CALCIUM LEVEL 8.8 MG/DL (8.5-10.1); CARBON DIOXIDE LEVEL 28 MMOL/L (20-31); CHLORIDE LEVEL 102 MMOL/L (98-107); CREATININE FOR GFR 0.57 MG/DL (0.70-1.30); GLOMERULAR FILTRATION RATE > 90.0 (>56); POTASSIUM SERUM 4.4 MMOL/L (3.5-5.1); SODIUM LEVEL 139 MMOL/L (136-145)
[2025-10-05 12:00] VITALS: BP 128/79; TEMP 99.1; O2SAT 97
[2025-10-05 20:16] VITALS: BP 138/85; TEMP 99; O2SAT 96
[2025-10-06 08:17] LABS: PLATELET COUNT, AUTOMATED 450 10^3/uL (150-450)
[2025-10-06 08:45] LABS: CALCIUM LEVEL 9.1 MG/DL (8.5-10.1); CARBON DIOXIDE LEVEL 27 MMOL/L (20-31); CHLORIDE LEVEL 100 MMOL/L (98-107); CREATININE FOR GFR 0.51 MG/DL (0.70-1.30); GLOMERULAR FILTRATION RATE > 90.0 (>56); POTASSIUM SERUM 4.1 MMOL/L (3.5-5.1); SODIUM LEVEL 136 MMOL/L (136-145)
[2025-10-06] MEDS: ACETAMINOPHEN *IV* 1,000 MG in IV 1 EA IV ONE (09:45)
== END 2025-10-06 11:36 | disposition left against medical advice (07) | DRG 344 ==
LOC: M ED 23:52 → M ED INP 10-01 18:29 → M MSPAV 10-01 21:45
PROVIDERS: ADMIT Student in an Organized Health Care Education/Training Program; ATTEND Student in an Organized Health Care Education/Training Program
DX: M46.26 Osteomyelitis of vertebra, lumbar region (principal); K68.12 Psoas muscle abscess; B95.61 Methicillin susceptible Staphylococcus aureus infection as the cause of diseases classified elsewhere; D50.9 Iron deficiency anemia, unspecified; F11.10 Opioid abuse, uncomplicated; F39 Unspecified mood [affective] disorder; M46.46 Discitis, unspecified, lumbar region; Z79.899 Other long term (current) drug therapy; Z88.0 Allergy status to penicillin; Z88.6 Allergy status to analgesic agent; F12.90 Cannabis use, unspecified, uncomplicated; F14.90 Cocaine use, unspecified, uncomplicated; K22.70 Barrett's esophagus without dysplasia

== ENCOUNTER 2025-10-09 13:46 | Inpatient (IN) | payer OTHER ==
[~2025-10-09] VITALS: Ht 167.6 cm; Wt 63.0 kg
[~2025-10-09 13:46] MED LIST changes: -BACTDSTA PO; +MED REC COMMENT; +SULF-8 PO
[2025-10-09 14:27] LABS: BASO # 0.0 10^3/uL (0.0-0.2); BASO % 0.3 % (0.0-1.0); EOS # 0.2 10^3/uL (0.0-0.5); EOS % 2.1 % (0.0-3.0); LYMPH # 2.0 10^3/uL (1.5-5.0); LYMPH % 23.0 % (24.0-44.0); MONO # 0.5 10^3/uL (0.0-0.8); MONO % 5.8 % (2.0-8.0); NEUTROPHILS # 6.0 10^3/uL (1.5-8.5); NEUTROPHILS % 68.6 % (36.0-66.0); PLATELET COUNT, AUTOMATED 629 10^3/uL (150-450)
[2025-10-09 14:49] LABS: ALT/SGPT 13 U/L (7.0-40); AST/SGOT 13 U/L (<34); CALCIUM LEVEL 9.2 MG/DL (8.5-10.1); CARBON DIOXIDE LEVEL 23 MMOL/L (20-31); CHLORIDE LEVEL 101 MMOL/L (98-107); CREATININE FOR GFR 0.67 MG/DL (0.70-1.30); GLOMERULAR FILTRATION RATE > 90.0 (>56); POTASSIUM SERUM 4.0 MMOL/L (3.5-5.1); SODIUM LEVEL 136 MMOL/L (136-145)
[2025-10-09 14:59] LABS: C REACTIVE PROTEIN QUANTITATIV 0.85 MG/DL (<1.0)
[2025-10-09] MEDS ORDERED: LINE1TAB PO (15:02)
[2025-10-09] MEDS ORDERED: QUET1TAB17 PO (15:02)
[2025-10-09] MEDS ORDERED: ACET-683 PO (15:02)
[2025-10-09] MEDS ORDERED: HOME MED LIST COMPLETE! XX SCH (15:05)
[2025-10-09] MEDS: DALBAVANCIN 1,500 MG in D5W 250 ML IV ONE (16:46)
[2025-10-09] MEDS ORDERED: traZODone 50 MG TAB PO PRN (20:35)
[2025-10-09] MEDS ORDERED: ONDANSETRON 4MG ORAL DISINTEGRATING TAB PO PRN (20:35)
[2025-10-09] MEDS ORDERED: MAALOX 30 ML SUSP *UDC PO PRN (20:35)
[2025-10-09] MEDS ORDERED: MOM 30 ML SUSPENSION UDC PO PRN (20:35)
[2025-10-09] MEDS ORDERED: HALOPERIDOL 5 MG TAB PO PRN (20:35)
[2025-10-09] MEDS ORDERED: LOPERAMIDE 2 MG CAPLET PO PRN (20:35)
[2025-10-09 23:18] LABS: BARBITURATES URINE NEGATIVE (NEGATIVE); BENZODIAZEPINES URINE NEGATIVE (NEGATIVE); CANNABINOIDS URINE NEGATIVE (NEGATIVE); COCAINE METABOLITE URINE NEGATIVE (NEGATIVE); METHADONE URINE NEGATIVE (NEGATIVE); OPIATES URINE NEGATIVE (NEGATIVE); PHENCYCLIDINE URINE NEGATIVE (NEGATIVE)
[2025-10-09 23:31] LABS: AMPHETAMINES LEVEL URINE POSITIVE (NEGATIVE)
[2025-10-10] MEDS: LORazepam 1 MG TAB PO PRN (01:28)
[2025-10-10] MEDS: ACETAMINOPHEN 325 MG TAB PO PRN (01:28)
[2025-10-10 03:11] VITALS: BP 137/82; TEMP 97.6; O2SAT 100
[2025-10-10] MEDS: MULTIVITAMINS/MINERALS THERAP 1 TAB PO SCH (10:20)
[2025-10-10] MEDS: BUPRENORPHINE/NALOXONE 2-0.5MG SUBLINGUAL TABLET(SUBOXONE) SL SCH (10:20)
[2025-10-10] MEDS: FERROUS SULFATE 325 MG TAB PO SCH (10:21)
[2025-10-10] MEDS: CYANOCOBALAMIN 500 MCG TAB PO SCH (10:21)
[2025-10-10 10:29] VITALS: BP 142/80
[2025-10-10] MEDS: cloNIDine HCL 0.3 MG/24 HR PATCH TOP SCH (10:29)
[2025-10-10] MEDS: buPROPion **XL** 150 MG TABLET PO SCH (11:53)
[2025-10-10] MEDS: GABAPENTIN 100 MG CAP PO SCH (11:53)
[2025-10-10] MEDS: BUPRENORPHINE/NALOXONE 2-0.5MG SUBLINGUAL TABLET(SUBOXONE) SL ONE (14:08)
[2025-10-10] MEDS: KETOROLAC 60 MG/2 ML VIAL IM ONE (14:21)
[2025-10-10 16:38] VITALS: BP 114/76; TEMP 97.1; O2SAT 97
[2025-10-10] MEDS: KETOROLAC TROMETHAMINE 10 MG TAB PO PRN (22:56)
[2025-10-11 08:00] VITALS: BP 120/82; TEMP 98.5; O2SAT 100
[2025-10-11] MEDS: BUPRENORPHINE/NALOXONE 8-2MG SUBLINGUAL TABLET(SUBOXONE) PO SCH (09:25)
[2025-10-11] MEDS: KETOROLAC 60 MG/2 ML VIAL IM ONE (13:10)
[2025-10-11 14:40] VITALS: BP 125/86; TEMP 98.3; O2SAT 94
[2025-10-11] MEDS: GABAPENTIN 100 MG CAP PO SCH (15:18)
[2025-10-12 06:25] VITALS: BP 110/70; TEMP 97.6; O2SAT 96
[2025-10-12 08:30] VITALS: BP 120/68; TEMP 98; O2SAT 98
[2025-10-12 12:50] VITALS: BP 117/78; TEMP 98.2; O2SAT 98
[2025-10-12] MEDS ORDERED: traMADol 50 MG TAB PO PRN (15:40)
[2025-10-12 16:30] VITALS: BP 113/68; TEMP 98.5; O2SAT 98
[2025-10-13 08:00] VITALS: BP 142/86; TEMP 98.2; O2SAT 100
[2025-10-13] MEDS: LIDOCAINE 5% PATCH TD SCH (09:00)
[2025-10-13] MEDS: IBUPROFEN 600 MG TAB PO SCH (15:33)
[2025-10-13] MEDS: GABAPENTIN 300 MG CAP PO SCH (15:35)
[2025-10-13] MEDS: ULTRACET TAB PO SCH (15:35)
[2025-10-13 15:38] VITALS: BP 123/59; TEMP 98.6; O2SAT 98
[2025-10-13] MEDS: PANTOPRAZOLE 40MG TAB PO SCH (21:00)
[2025-10-14 06:48] VITALS: BP 139/90; TEMP 98.3; O2SAT 97
[2025-10-14 15:31] VITALS: BP 151/94; TEMP 97.3; O2SAT 98
[2025-10-14 15:34] LABS: BASO # 0.0 10^3/uL (0.0-0.2); BASO % 0.5 % (0.0-1.0); EOS # 0.3 10^3/uL (0.0-0.5); EOS % 5.1 % (0.0-3.0); LYMPH # 1.6 10^3/uL (1.5-5.0); LYMPH % 28.8 % (24.0-44.0); MONO # 0.4 10^3/uL (0.0-0.8); MONO % 6.5 % (2.0-8.0); NEUTROPHILS # 3.4 10^3/uL (1.5-8.5); NEUTROPHILS % 58.9 % (36.0-66.0); PLATELET COUNT, AUTOMATED 529 10^3/uL (150-450)
[2025-10-15] MEDS ORDERED: BUPR150T12 PO (03:57)
[2025-10-15] MEDS ORDERED: TRAZ-252 PO (03:57)
[2025-10-15] MEDS ORDERED: CLON0.3D8 TOP (03:57)
[2025-10-15] MEDS ORDERED: CLONI1TA PO (08:20)
== END 2025-10-15 11:12 | disposition home or self-care (01) | DRG 751 ==
LOC: M ED 13:46 → CANBEDREQ 14:56 → M ED INP 20:34 → M PSY 10-10 00:25
PROVIDERS: ADMIT Psychiatry & Neurology Neurology; ATTEND Psychiatry & Neurology Neurology
DX: F33.1 Major depressive disorder, recurrent, moderate (principal); F11.90 Opioid use, unspecified, uncomplicated; F15.90 Other stimulant use, unspecified, uncomplicated; F41.9 Anxiety disorder, unspecified; G89.29 Other chronic pain; R45.851 Suicidal ideations; Z88.0 Allergy status to penicillin; Z88.6 Allergy status to analgesic agent; K22.70 Barrett's esophagus without dysplasia; Z79.899 Other long term (current) drug therapy; E53.8 Deficiency of other specified B group vitamins; D64.9 Anemia, unspecified; K59.00 Constipation, unspecified; F17.200 Nicotine dependence, unspecified, uncomplicated; F12.90 Cannabis use, unspecified, uncomplicated; M46.46 Discitis, unspecified, lumbar region; M46.26 Osteomyelitis of vertebra, lumbar region; Z91.148 Patient's other noncompliance with medication regimen for other reason

== ENCOUNTER 2025-10-18 22:02 | Inpatient (IN) | payer OTHER ==
[~2025-10-18] VITALS: Ht 185.4 cm; Wt 62.0 kg
[~2025-10-18 22:02] MED LIST changes: +BUPR150T12 PO; +CLON0.3D8 TOP; +CLONI1TA PO; +TRAZ-252 PO
[2025-10-18 23:17] LABS: PLATELET COUNT, AUTOMATED 478 10^3/uL (150-450)
[2025-10-18 23:42] LABS: ETHYL ALCOHOL (ETHANOL) < 0.003 % (0.000-0.010)
[2025-10-18 23:44] LABS: ALT/SGPT 12 U/L (7.0-40); AST/SGOT 17 U/L (<34); CALCIUM LEVEL 9.4 MG/DL (8.5-10.1); CARBON DIOXIDE LEVEL 27 MMOL/L (20-31); CHLORIDE LEVEL 98 MMOL/L (98-107); CREATININE FOR GFR 0.98 MG/DL (0.70-1.30); GLOMERULAR FILTRATION RATE > 90.0 (>56); POTASSIUM SERUM 4.1 MMOL/L (3.5-5.1); SALICYLATE LEVEL < 3.0 MG/DL (<30); SODIUM LEVEL 137 MMOL/L (136-145)
[2025-10-19] MEDS: DALBAVANCIN 1,500 MG in D5W 250 ML IV ONE (01:02)
[2025-10-19] MEDS ORDERED: MOM 30 ML SUSPENSION UDC PO PRN ×2 (01:50→17:40)
[2025-10-19] MEDS ORDERED: MAALOX 30 ML SUSP *UDC PO PRN (01:50)
[2025-10-19] MEDS ORDERED: ACETAMINOPHEN 325 MG TAB PO PRN (01:50)
[2025-10-19] MEDS ORDERED: HALOPERIDOL 5 MG TAB PO PRN (01:50)
[2025-10-19 03:01] LABS: BARBITURATES URINE NEGATIVE (NEGATIVE); CANNABINOIDS URINE NEGATIVE (NEGATIVE); METHADONE URINE NEGATIVE (NEGATIVE); OPIATES URINE NEGATIVE (NEGATIVE); PHENCYCLIDINE URINE NEGATIVE (NEGATIVE)
[2025-10-19 03:04] LABS: AMPHETAMINES LEVEL URINE POSITIVE (NEGATIVE); BENZODIAZEPINES URINE POSITIVE (NEGATIVE); COCAINE METABOLITE URINE POSITIVE (NEGATIVE)
[2025-10-19 04:30] VITALS: BP 148/94; TEMP 98.2; O2SAT 98
[2025-10-19] MEDS: traMADol 50 MG TAB PO ONE (12:21)
[2025-10-19 13:40] LABS: BASO # 0.0 10^3/uL (0.0-0.2); BASO % 0.5 % (0.0-1.0); EOS # 0.4 10^3/uL (0.0-0.5); EOS % 5.4 % (0.0-3.0); LYMPH # 1.7 10^3/uL (1.5-5.0); LYMPH % 24.8 % (24.0-44.0); MONO # 0.5 10^3/uL (0.0-0.8); MONO % 7.1 % (2.0-8.0); NEUTROPHILS # 4.1 10^3/uL (1.5-8.5); NEUTROPHILS % 61.9 % (36.0-66.0); PLATELET COUNT, AUTOMATED 428 10^3/uL (150-450)
[2025-10-19 14:06] LABS: ALT/SGPT 11 U/L (7.0-40); AST/SGOT 14 U/L (<34); C REACTIVE PROTEIN QUANTITATIV 2.21 MG/DL (<1.0); CALCIUM LEVEL 8.9 MG/DL (8.5-10.1); CARBON DIOXIDE LEVEL 27 MMOL/L (20-31); CHLORIDE LEVEL 101 MMOL/L (98-107); CREATININE FOR GFR 0.70 MG/DL (0.70-1.30); GLOMERULAR FILTRATION RATE > 90.0 (>56); POTASSIUM SERUM 3.8 MMOL/L (3.5-5.1); SODIUM LEVEL 138 MMOL/L (136-145)
[2025-10-19 15:30] VITALS: BP 121/71; TEMP 98.5; O2SAT 100
[2025-10-19] MEDS ORDERED: BUPR150T12 PO (16:12)
[2025-10-19] MEDS ORDERED: CLON-412 PO (16:13)
[2025-10-19] MEDS ORDERED: TRAZ1TAB10 PO (16:14)
[2025-10-19] MEDS ORDERED: HOME MED LIST COMPLETE! XX SCH (16:15)
[2025-10-19] MEDS: ULTRACET TAB PO SCH (16:42)
[2025-10-19] MEDS: LACTULOSE 20 GM/30 ML SYRUP UDC PO ONE (17:55)
[2025-10-19] MEDS: SENNOSIDES/DOCUSATE SODIUM 8.6 MG/50MG TAB PO ONE (17:55)
[2025-10-19] MEDS ORDERED: traMADol 50 MG TAB PO PRN (18:00)
[2025-10-19] MEDS: QUEtiapine FUMARATE 50MG TAB PO SCH (20:52)
[2025-10-19] MEDS: LACTULOSE 20 GM/30 ML SYRUP UDC PO SCH (20:52)
[2025-10-20 06:57] VITALS: BP 118/69; TEMP 97.8; O2SAT 97
[2025-10-20] MEDS: BISACODYL 5 MG TAB PO ONE (07:34)
[2025-10-20] MEDS: MOM 30 ML SUSPENSION UDC PO ONE (07:34)
[2025-10-20] MEDS: SENNOSIDES/DOCUSATE SODIUM 8.6 MG/50MG TAB PO SCH (09:54)
[2025-10-20] MEDS: LORazepam 1 MG TAB PO PRN (20:33)
[2025-10-21 06:23] VITALS: BP 120/71; TEMP 98.1; O2SAT 98
[2025-10-21 13:06] VITALS: BP 120/71; TEMP 98.1; O2SAT 98
[2025-10-21] MEDS: traZODone 50 MG TAB PO PRN (23:01)
[2025-10-22] MEDS ORDERED: DULO1CAP5 PO (11:34)
[2025-10-22] MEDS ORDERED: SENN-208 PO (11:34)
== END 2025-10-22 15:36 | disposition home or self-care (01) | DRG 751 ==
LOC: M ED 22:02 → M ED INP 10-19 01:50 → M PSY 10-19 04:20
PROVIDERS: ADMIT Psychiatry & Neurology Neurology; ATTEND Psychiatry & Neurology Neurology
DX: F33.1 Major depressive disorder, recurrent, moderate (principal); R45.851 Suicidal ideations; I48.91 Unspecified atrial fibrillation; D50.9 Iron deficiency anemia, unspecified; F17.200 Nicotine dependence, unspecified, uncomplicated; E53.8 Deficiency of other specified B group vitamins; F41.0 Panic disorder [episodic paroxysmal anxiety]; F11.90 Opioid use, unspecified, uncomplicated; F15.90 Other stimulant use, unspecified, uncomplicated; Z88.0 Allergy status to penicillin; Z88.6 Allergy status to analgesic agent; Z79.899 Other long term (current) drug therapy; K40.90 Unilateral inguinal hernia, without obstruction or gangrene, not specified as recurrent; K22.70 Barrett's esophagus without dysplasia; F12.90 Cannabis use, unspecified, uncomplicated; K59.00 Constipation, unspecified

== ENCOUNTER 2025-10-28 07:16 | Emergency (ER) | payer OTHER ==
[~2025-10-28] VITALS: Ht 167.6 cm; Wt 59.1 kg
[~2025-10-28 07:16] MED LIST changes: +CLON-412 PO; +DULO1CAP5 PO; +SENN-208 PO; +TRAZ1TAB10 PO
[2025-10-28 08:15] LABS: BASO # 0.0 10^3/uL (0.0-0.2); BASO % 0.5 % (0.0-1.0); EOS # 0.2 10^3/uL (0.0-0.5); EOS % 3.6 % (0.0-3.0); LYMPH # 2.0 10^3/uL (1.5-5.0); LYMPH % 31.9 % (24.0-44.0); MONO # 0.5 10^3/uL (0.0-0.8); MONO % 8.2 % (2.0-8.0); NEUTROPHILS # 3.4 10^3/uL (1.5-8.5); NEUTROPHILS % 55.5 % (36.0-66.0); PLATELET COUNT, AUTOMATED 335 10^3/uL (150-450)
[2025-10-28] MEDS: ACETAMINOPHEN *IV* 1,000 MG in IV 1 EA IV ONE (08:22)
[2025-10-28 08:50] LABS: ALT/SGPT 12 U/L (7.0-40); AST/SGOT 42 U/L (<34); CALCIUM LEVEL 8.9 MG/DL (8.5-10.1); CARBON DIOXIDE LEVEL 25 MMOL/L (20-31); CHLORIDE LEVEL 103 MMOL/L (98-107); CREATININE FOR GFR 0.59 MG/DL (0.70-1.30); GLOMERULAR FILTRATION RATE > 90.0 (>56); POTASSIUM SERUM 4.6 MMOL/L (3.5-5.1); SODIUM LEVEL 139 MMOL/L (136-145)
[2025-10-28 09:59] LABS: C REACTIVE PROTEIN QUANTITATIV 1.68 MG/DL (<1.0)
[2025-10-28] MEDS ORDERED: PROHANCE 279.3MG/ML 15ML VIAL As Ordered ONE (12:16)
[2025-10-28] MEDS ORDERED: WELLTAB38 PO (16:46)
[2025-10-28] MEDS ORDERED: CLONI1TA PO (16:46)
[2025-10-28] MEDS ORDERED: HOME MED LIST COMPLETE! XX SCH (16:50)
[2025-10-28 17:30] VITALS: TEMP 98.2
[2025-10-28] MEDS: DALBAVANCIN 1,500 MG in D5W 250 ML IV ONE (19:21)
[2025-10-28] MEDS ORDERED: KETO-204 PO (20:00)
[2025-10-28] MEDS: KETOROLAC 30 MG/ML 1 ML VIAL IV ONE (20:08)
[2025-10-28 20:15] VITALS: BP 115/68; O2SAT 99
== END 2025-10-28 20:39 | disposition home or self-care (01) ==
LOC: M ED 07:16
DX: M46.26 Osteomyelitis of vertebra, lumbar region (principal); M46.46 Discitis, unspecified, lumbar region; M48.061 Spinal stenosis, lumbar region without neurogenic claudication; M43.15 Spondylolisthesis, thoracolumbar region; J45.909 Unspecified asthma, uncomplicated; F19.10 Other psychoactive substance abuse, uncomplicated; K22.70 Barrett's esophagus without dysplasia; Z88.0 Allergy status to penicillin; Z88.6 Allergy status to analgesic agent; Z79.899 Other long term (current) drug therapy
CPT/HCPCS: 72158; 80047; 80048; 80076; 83605; 83690; 85025; 85652; 86140; 87040; 93041; 96365; 96375; 99285; A9579; J0134; J0875; J1885

== ENCOUNTER 2025-10-30 04:42 | Emergency (ER) | payer OTHER ==
[~2025-10-30] VITALS: Ht 167.6 cm; Wt 59.1 kg
[~2025-10-30 04:42] MED LIST changes: +WELLTAB38 PO
[2025-10-30 05:44] LABS: PLATELET COUNT, AUTOMATED 351 10^3/uL (150-450)
[2025-10-30 06:07] LABS: ETHYL ALCOHOL (ETHANOL) < 0.003 % (0.000-0.010)
[2025-10-30 06:08] LABS: SALICYLATE LEVEL < 3.0 MG/DL (<30)
[2025-10-30 06:09] LABS: ALT/SGPT 11 U/L (7.0-40); AST/SGOT 25 U/L (<34); CALCIUM LEVEL 9.1 MG/DL (8.5-10.1); CARBON DIOXIDE LEVEL 27 MMOL/L (20-31); CHLORIDE LEVEL 102 MMOL/L (98-107); CREATININE FOR GFR 0.59 MG/DL (0.70-1.30); GLOMERULAR FILTRATION RATE > 90.0 (>56); POTASSIUM SERUM 4.6 MMOL/L (3.5-5.1); SODIUM LEVEL 137 MMOL/L (136-145)
[2025-10-30] MEDS: LIDOCAINE 5% PATCH TD ONE (06:31)
[2025-10-30 07:44] LABS: BARBITURATES URINE NEGATIVE (NEGATIVE); BENZODIAZEPINES URINE NEGATIVE (NEGATIVE); CANNABINOIDS URINE NEGATIVE (NEGATIVE); COCAINE METABOLITE URINE NEGATIVE (NEGATIVE); OPIATES URINE NEGATIVE (NEGATIVE); PHENCYCLIDINE URINE NEGATIVE (NEGATIVE)
[2025-10-30 07:50] LABS: AMPHETAMINES LEVEL URINE POSITIVE (NEGATIVE); METHADONE URINE POSITIVE (NEGATIVE)
[2025-10-30 16:25] VITALS: BP 116/83; TEMP 98; O2SAT 100
== END 2025-10-30 16:28 | disposition home or self-care (01) ==
LOC: M ED 04:42
DX: F19.10 Other psychoactive substance abuse, uncomplicated (principal); Z88.0 Allergy status to penicillin; Z88.6 Allergy status to analgesic agent; Z79.899 Other long term (current) drug therapy
CPT/HCPCS: 80048; 80076; 80143; 80307; 82077; 84443; 85027; 96372; 99284; J2060

== ENCOUNTER 2025-11-02 03:04 | Emergency (ER) | payer OTHER ==
[~2025-11-02] VITALS: Ht 167.6 cm; Wt 62.6 kg
[2025-11-02] MEDS ORDERED: HYDR-3363 PO (04:11)
[2025-11-02 04:30] VITALS: TEMP 96.9
[2025-11-02 04:47] VITALS: BP 161/96; O2SAT 98
== END 2025-11-02 04:45 | disposition home or self-care (01) ==
LOC: M ED 03:04
DX: R44.2 Other hallucinations (principal); F15.10 Other stimulant abuse, uncomplicated; F42.4 Excoriation (skin-picking) disorder; Z88.0 Allergy status to penicillin; Z88.6 Allergy status to analgesic agent; Z79.899 Other long term (current) drug therapy

== ENCOUNTER 2025-11-07 00:01 | Emergency (ER) | payer OTHER ==
[~2025-11-07] VITALS: Ht 167.6 cm; Wt 63.6 kg
[2025-11-07 00:03] VITALS: BP 130/77; TEMP 97.2; O2SAT 99
[2025-11-07] MEDS ORDERED: BACT800T5 PO (19:11)
[2025-11-07] MEDS ORDERED: KETO-204 PO (19:11)
== END 2025-11-07 01:46 | disposition left against medical advice (07) ==
LOC: M ED 00:01
DX: Z53.21 Procedure and treatment not carried out due to patient leaving prior to being seen by health care provider (principal)

== ENCOUNTER 2025-11-07 13:24 | Emergency (ER) | payer OTHER ==
[~2025-11-07] VITALS: Ht 162.6 cm; Wt 60.3 kg
[2025-11-07] MEDS: KETOROLAC 30 MG/ML 1 ML VIAL IV ONE (17:11)
[2025-11-07 17:23] LABS: BASO # 0.0 10^3/uL (0.0-0.2); BASO % 0.5 % (0.0-1.0); EOS # 0.4 10^3/uL (0.0-0.5); EOS % 5.9 % (0.0-3.0); LYMPH # 2.3 10^3/uL (1.5-5.0); LYMPH % 37.6 % (24.0-44.0); MONO # 0.4 10^3/uL (0.0-0.8); MONO % 7.4 % (2.0-8.0); NEUTROPHILS # 2.9 10^3/uL (1.5-8.5); NEUTROPHILS % 48.4 % (36.0-66.0); PLATELET COUNT, AUTOMATED 457 10^3/uL (150-450)
[2025-11-07] MEDS ORDERED: ISOVUE-370 76% 100 ML VIAL As Ordered ONE (17:35)
[2025-11-07] MEDS ORDERED: KETO-204 PO (19:11)
[2025-11-07] MEDS ORDERED: BACT800T5 PO (19:11)
[2025-11-07] MEDS: BACTRIM 160MG/800MG DS TAB PO ONE (19:21)
[2025-11-07 19:25] VITALS: BP 168/77; TEMP 97.8; O2SAT 100
== END 2025-11-07 19:32 | disposition home or self-care (01) ==
LOC: M ED 15:44
DX: G89.29 Other chronic pain (principal); F19.10 Other psychoactive substance abuse, uncomplicated; M46.26 Osteomyelitis of vertebra, lumbar region; M46.46 Discitis, unspecified, lumbar region; M47.816 Spondylosis without myelopathy or radiculopathy, lumbar region; K59.00 Constipation, unspecified; K40.90 Unilateral inguinal hernia, without obstruction or gangrene, not specified as recurrent; K44.9 Diaphragmatic hernia without obstruction or gangrene; Z88.0 Allergy status to penicillin; Z88.6 Allergy status to analgesic agent; Z79.899 Other long term (current) drug therapy
CPT/HCPCS: 74177; 80047; 85025; 85652; 86140; 87040; 96374; 99281; 99284; J1885; Q9967

== ENCOUNTER 2025-11-08 14:48 | Emergency (ER) | payer OTHER ==
[~2025-11-08] VITALS: Ht 167.6 cm; Wt 59.1 kg
[~2025-11-08 14:48] MED LIST changes: +BACT800T5 PO
[2025-11-08] MEDS: KETOROLAC 30 MG/ML 1 ML VIAL IM ONE (18:22)
[2025-11-08] MEDS: BACTRIM 160MG/800MG DS TAB PO ONE (18:22)
[2025-11-08 18:42] VITALS: BP 142/90; TEMP 97.6; O2SAT 100
== END 2025-11-08 19:28 | disposition home or self-care (01) ==
LOC: M ED 14:48
DX: M25.551 Pain in right hip (principal); K40.90 Unilateral inguinal hernia, without obstruction or gangrene, not specified as recurrent; Z91.148 Patient's other noncompliance with medication regimen for other reason; F19.10 Other psychoactive substance abuse, uncomplicated; Z88.0 Allergy status to penicillin; Z88.6 Allergy status to analgesic agent; Z79.2 Long term (current) use of antibiotics; Z79.899 Other long term (current) drug therapy
CPT/HCPCS: 76870; 93976; 96372; 99284; J1885

== ENCOUNTER 2025-11-12 20:24 | Emergency (ER) | payer OTHER ==
[~2025-11-12] VITALS: Ht 167.6 cm; Wt 59.1 kg
[2025-11-13 04:59] VITALS: BP 151/79; TEMP 98.4; O2SAT 100
== END 2025-11-13 06:55 | disposition left against medical advice (07) ==
LOC: M ED 20:24
DX: Z53.21 Procedure and treatment not carried out due to patient leaving prior to being seen by health care provider (principal)